=== PATIENT | female | born 1985 | race Caucasian/White ===

== ENCOUNTER 2016-08-10 14:32 | Emergency (ER) | payer MEDICARE, OTHER ==
[~2016-08-10] VITALS: Ht 149.9 cm; Wt 75.0 kg
[~2016-08-10 14:32] MED LIST: IPRASOL INH; MONT10TA2 PO; PRED20 PO; Z.0.OXYGENDME NC
[2016-08-10 14:35] VITALS: BP 152/100; PULSE 92; RESP 14; TEMP 98.1; O2SAT 96
--- NOTE | 2016-08-10 15:59 | PD ---
HPI Chief Complaint: Coordinator Of Genetic Services Problem/Complaint Time Seen by Provider: 15:12 Travel History International Travel<30 days: No Contact w/Intl Traveler<30days: No Traveled to known affect area: No History of Present Illness HPI Patient is a 30-year-old female who presents to emergency room with complaints of vaginal pruritus as well as vaginal discharge. Patient reports that since March, she has been treated multiple times with Diflucan as well as over-the -counter Monistat for yeast infection. Patient reports that these medications are not helping her. Patient reports that she tried using Monistat today, reports that she still feels increased pruritus to her vaginal wall. Patient reports that she is sexually active, reports that she does use protection during intercourse, reports that she is not follow-up with dispute specialist for evaluation for possible STD. Patient denies any fevers or chills at this time. Patient denies abdominal pain. Patient denies nausea or vomiting. Patient does report dysuria with urinary urgency and frequency. PFSH Past Medical History Asthma: Yes Autoimmune Disease: No Blood Disorders: No Anxiety: Yes Depression: No Cancer: No Cardiovascular Problems: Yes Diabetes: No Diminished Hearing: No Endocrine: No Gastrointestinal Disorders: No Glaucoma: Yes (GLAUCOMA IMPLANT ON 07-12-05) Genitourinary: No Hypertension: Yes Immune Disorder: No Musculoskeletal: No Neurologic: Yes (LEGALLY BLIND OU) Psychiatric: Yes Reproductive: No Respiratory: Yes (PNA/ASTHMA) Immunizations Current: No Thyroid Disease: No Tetanus Vaccination: Unknown Influenza Vaccination: No ?: Not Menopausal: No : 3 Para: 2 Miscarriage: 1 Past Surgical History Abdominal Surgery: Yes (MIDLINE UMBILICAL HERNIA) AICD: No Eye Surgery: Yes (prosthetic eyes ) Joint Replacement: No Oral Surgery: Yes Pacemaker: No Tonsillectomy: Yes Other Surgery: Yes Social History Alcohol Use: Yes (on occasion) Tobacco Use: No (never) Substance Use: Yes (MARIJUANA on occasion) Allergies-Medications (Allergen,Severity, Reaction): Coded Allergies: Macrobid (Verified Adverse Reaction, Severe, nausea and diarrhea, 07/17/16 ) Erythromycin (Verified Adverse Reaction, Mild, CONVULSIONS, 07/17/16) Uncoded Allergies: PROPELLANT BASED INHALERS (Allergy, Intermediate, 09/09/15) Reported Meds & Prescriptions Reported Meds & Active Scripts Active Prednisone 20 Mg Tab 20 Mg PO DAILY Duoneb (Ipratropium-Albuterol Neb) 0.5-2.5 Mg/3 Ml Neb 1 Nebule INH Q4HR NEB Oxygen (O2) (Z.0.oxygendme) Device 2 L NC CONTINUOUS Oxygen Concentrator Portable Gaseous 2 L/min via Nasal Cannula Continuous For 99 months Reported Singulair (Montelukast Sodium) 10 Mg Tab 10 Mg PO HS Review of Systems General / Constitutional: No: Fever Eyes: No: Visual changes HENT: No: Headaches Cardiovascular: No: Chest Pain or Discomfort Respiratory: No: Shortness of Breath Gastrointestinal: No: Abdominal Pain Genitourinary: Positive: Urgency, Frequency, Discharge, No: Dysuria Musculoskeletal: No: Pain Skin: No Rash Neurologic: No: Weakness Psychiatric: No: Depression Endocrine: No: Polydipsia Hematologic/Lymphatic: No: Easy Bruising Physical Exam Narrative GENERAL: No acute distress, nontoxic SKIN: Warm and dry. HEAD: Atraumatic. Normocephalic. . ENT: No nasal bleeding or discharge. Mucous membranes pink and moist. NECK: Trachea midline. No JVD. CARDIOVASCULAR: Regular rate and rhythm. No murmur appreciated. RESPIRATORY: No accessory muscle use. Clear to auscultation. Breath sounds equal bilaterally. GASTROINTESTINAL: Abdomen soft, non-tender, nondistended. Hepatic and splenic margins not palpable. : Pelvic exam performed with RN at bedside, patient with strawberry cervix, patient with irritated vaginal mucosal jane, patient with no obvious discharge on evaluation MUSCULOSKELETAL: No obvious deformities. No clubbing. No cyanosis. No edema. NEUROLOGICAL: Awake and alert. Data Data Last Documented VS Vital Signs Date Time Temp Pulse Resp B/P Pulse Ox O2 Delivery O2 Flow Rate FiO2 08/10/16 14:35 98.1 92 14 152/100 96 Room Air Orders Wet Prep Profile (08/10/16 15:25) Urinalysis - C+S If Indicated (08/10/16 15:25) Ed Urine Pregnancytest Poc (08/10/16 15:25) Gc And Chlamydia Pcr (08/10/16 16:34) Metronidazole (Flagyl) (08/10/16 17:15) Labs Laboratory Tests Test 08/10/16 16:00 Urine Color YELLOW Urine Turbidity HAZY Urine pH 5.5 Urine Specific Eldridge 1.031 Urine Protein TRACE mg/dL Urine Glucose (UA) NEG mg/dL Urine Ketones NEG mg/dL Urine Occult Blood MOD Urine Nitrite NEG Urine Bilirubin NEG Urine Urobilinogen LESS THAN 2.0 MG/DL Urine Leukocyte Esterase LARGE Urine RBC LESS THAN 1 /hpf Urine WBC LESS THAN 1 /hpf Microscopic Urinalysis Comment CULT NOT INDICATED Clue Cells (Wet Prep) NONE SEEN Vaginal Trichomonas (Wet Prep) PRESENT Vaginal Yeast (Wet Prep) NONE SEEN MDM Medical Decision Making Medical Screen Exam Complete: Yes Emergency Medical Condition: Yes Interpretation(s) Vital Signs Date Time Temp Pulse Resp B/P Pulse Ox O2 Delivery O2 Flow Rate FiO2 08/10/16 14:35 98.1 92 14 152/100 96 Room Air Differential Diagnosis vaginitis, cervicitis, uti, yeast infection Narrative Course Patient is a 30-year-old female who presents to emergency room with complaints of irregular vaginal discharge and vaginal pruritus since March. Patient reports that she has been on multiple courses of yeast infections over-the- counter as well as Diflucan - reports no relief of symptoms. Discussed with patient need for pelvic exam, will check for G/C and BV and trich patient positive for trich, will treat Patient understands that all sexual partners will need to be notified and treated Patient will follow up with cultures from today Diagnosis Primary Impression: Infection due to trichomonas vaginalis Patient Instructions: General Instructions Additional Instructions: All sexual partners will need to be notified of positive trichomonas cultures and will need to be treated Please return to ER as needed Please follow up with CULTURES from today Disposition: 01 DISCHARGE HOME Condition: Denita Dodge DO Aug 10, 2016 15:59
[2016-08-10 16:22] LABS: BLOOD, URINE MOD (NEG); GLUCOSE,URINE NEG (NEG); KETONE, URINE NEG (NEG); NITRITE,URINE NEG (NEG); PH, URINE 5.5 (5.0-8.5); URINE COLOR YELLOW (YELLW/STRAW)
[2016-08-10 16:32] LABS: COMMENT (UR) CULT NOT INDICATED; CULTURE IF INDICATED CULT NOT INDICATED
[2016-08-10] MEDS ORDERED: metroNIDAZOLE 500 MG TAB PO ONE (17:15)
[2016-08-10 17:49] VITALS: BP 145/89; PULSE 89; RESP 14; TEMP 98.1; O2SAT 96
[2016-08-10 19:16] LABS: CHLAMYDIA PCR NOT DETECTED (NOT DETECT); NEISSERIA PCR NOT DETECTED (NOT DETECT)
== END 2016-08-10 18:22 | disposition home or self-care (01) ==
LOC: NEPC 14:32
DX: A59.01 Trichomonal vulvovaginitis (principal); R30.0 Dysuria; R39.15 Urgency of urination; R35.0 Frequency of micturition; I10 Essential (primary) hypertension; H54.8 Legal blindness, as defined in USA; Z87.09 Personal history of other diseases of the respiratory system; Z86.59 Personal history of other mental and behavioral disorders; Z86.79 Personal history of other diseases of the circulatory system
CPT/HCPCS: 81001; 84703; 87210; 87491; 87591; 99283

== ENCOUNTER 2016-08-16 21:22 | Emergency (ER) | payer MEDICARE, OTHER ==
[~2016-08-16] VITALS: Ht 149.9 cm; Wt 76.0 kg
[2016-08-16 21:25] VITALS: BP 155/102; PULSE 118; RESP 18; TEMP 98.2; O2SAT 99
--- NOTE | 2016-08-16 21:39 | PD ---
HPI Chief Complaint: Respiratory Distress Time Seen by Provider: 21:38 Travel History International Travel<30 days: No Contact w/Intl Traveler<30days: No Traveled to known affect area: No History of Present Illness HPI 30-year-old female with long-standing history of asthma with frequent recurrent flares, presents the emergency department feeling very tight and short of breath and wheezing. Patient has a rope rider recently put her on Asmanex inhaler which the patient states is not helping her much. Patient was last seen here for asthma symptoms mid June. Patient states she was on prednisone orally up until about a week ago and has felt worse since. Patient is a very frequent flier to the emergency department for minor complaints. She has a history of allergies to erythromycin, Macrobid, and propelledinhalers. PFSH Past Medical History Asthma: Yes Autoimmune Disease: No Blood Disorders: No Anxiety: Yes Depression: No Cancer: No Cardiovascular Problems: Yes Diabetes: No Diminished Hearing: No Endocrine: No Gastrointestinal Disorders: No Glaucoma: Yes (GLAUCOMA IMPLANT ON 07-12-05) Genitourinary: No Hypertension: Yes Immune Disorder: No Musculoskeletal: No Neurologic: Yes (LEGALLY BLIND OU) Psychiatric: Yes Reproductive: No Respiratory: Yes (ASTHMA) Immunizations Current: No Thyroid Disease: No Menopausal: No : 3 Para: 2 Miscarriage: 1 Past Surgical History Abdominal Surgery: Yes (MIDLINE UMBILICAL HERNIA) AICD: No Eye Surgery: Yes (prosthetic eyes ) Joint Replacement: No Oral Surgery: Yes Pacemaker: No Tonsillectomy: Yes Other Surgery: Yes Social History Alcohol Use: Yes (on occasion) Tobacco Use: No (never) Substance Use: Yes (MARIJUANA on occasion) Allergies-Medications (Allergen,Severity, Reaction): Coded Allergies: Macrobid (Verified Adverse Reaction, Severe, nausea and diarrhea, 08/16/16) Erythromycin (Verified Adverse Reaction, Mild, CONVULSIONS, 08/16/16) Uncoded Allergies: PROPELLANT BASED INHALERS (Allergy, Intermediate, 09/09/15) Reported Meds & Prescriptions Reported Meds & Active Scripts Active Duoneb (Ipratropium-Albuterol Neb) 0.5-2.5 Mg/3 Ml Neb 1 Nebule INH Q4HR NEB Oxygen (O2) (Z.0.oxygendme) Device 2 L NC CONTINUOUS Oxygen Concentrator Portable Gaseous 2 L/min via Nasal Cannula Continuous For 99 months Reported Singulair (Montelukast Sodium) 10 Mg Tab 10 Mg PO HS Review of Systems Except as stated in HPI: all other systems reviewed are Neg General / Constitutional: No: Fever, Chills Eyes: No: Visual changes HENT: No: Headaches Cardiovascular: No: Chest Pain or Discomfort Respiratory: Positive: Shortness of Breath, Wheezing Gastrointestinal: No: Abdominal Pain Genitourinary: No: Dysuria Musculoskeletal: No: Pain Skin: No Rash Neurologic: No: Weakness Psychiatric: No: Depression Endocrine: No: Polydipsia Hematologic/Lymphatic: No: Easy Bruising Physical Exam Narrative GENERAL: Patient appears no acute distress. Patient is noted be legally blind. She is sitting quietly taking very shallow breaths. Patient is able speak in short sentences. Patient does not show accessory muscle use or retractions. SKIN: Warm and dry. Normal color. Normal turgor. No cyanosis. HEAD: Atraumatic. Normocephalic. EYES: Pupils equal and round. No scleral icterus. No injection or drainage. ENT: No nasal bleeding or discharge. Mucous membranes pink and moist. Pharynx is normal. NECK: Trachea midline. No JVD. CARDIOVASCULAR: Mildly tachycardic normal rhythm RESPIRATORY: No accessory muscle use. Clear to auscultation. Decreased breath sounds throughout. Breath sounds equal bilaterally. MUSCULOSKELETAL: Extremities without clubbing, cyanosis, or edema. No obvious deformities. NEUROLOGICAL: Awake and alert. No obvious cranial nerve deficits. Motor grossly within normal limits. Five out of 5 muscle strength in the arms and legs. Normal speech. PSYCHIATRIC: Appropriate mood and affect; insight and judgment normal. Data Data Last Documented VS Vital Signs Date Time Temp Pulse Resp B/P Pulse Ox O2 Delivery O2 Flow Rate FiO2 08/16/16 21:40 98.9 107 18 141/108 96 Nasal Cannula 2 Orders Complete Blood Count With Diff (08/16/16 21:45) Comprehensive Metabolic Panel (08/16/16 21:45) Chest, Single Ap (08/16/16 21:45) Ecg Monitoring (08/16/16 21:45) Iv Access Insert/Monitor (08/16/16 21:45) Oximetry (08/16/16 21:45) Oxygen Administration (08/16/16 21:45) Methylprednisolone So Succ Inj (Solumedr (08/16/16 21:45) Albuterol-Ipratropium Neb (Duoneb Neb) (08/16/16 21:45) Sodium Chloride 0.9% Flush (Ns Flush) (08/16/16 21:45) Blood Gas Venous (Vbg) (08/16/16 21:45) [facility] Medical Decision Making Medical Screen Exam Complete: Yes Emergency Medical Condition: Yes Differential Diagnosis Asthma exacerbation. Shortness of breath. Question psychiatric component. Narrative Course Patient appears medically stable at time of exam. EKG is performed showing IV access is obtained and labs are ordered including CBC, CMP, and venous blood gas. Patient is given 125 mg Solu-Medrol IV. Patient is ordered DuoNeb 3. Chest x-ray is ordered. EKG shows sinus tachycardia without significant acute findings. This is reviewed with Dr. Pereira. Venous blood gases within normal limits. PH is 7.449. PCO2 of 35.5. PO2 43.1. HCO3 is 24.2. Chest x-ray is unremarkable. Patient is improved after DuoNeb 3 and Solu-Medrol 125 mg IV. Patient is felt stable to go home based on her lab studies. Patient discharged home on prednisone 20 mg daily for the next 5 days. Patient is to call her rope rider for further evaluation and treatment as needed. Patient may return to emergency department worsening symptoms as necessary. Diagnosis Primary Impression: Asthma exacerbation Referrals: Dry Chain Puller Patient Instructions: General Instructions Additional Instructions: Patient is felt stable to go home based on her lab studies. Patient discharged home on prednisone 20 mg daily for the next 5 days. Patient is to call her rope rider for further evaluation and treatment as needed. Patient may return to emergency department worsening symptoms as necessary. Med/Other Pt SpecificInfo: Prescription(s) given, No Change to Meds Disposition: 01 DISCHARGE HOME Condition: Stable Juan Carlos Gonzáles Aug 16, 2016 21:39
[2016-08-16 21:40] VITALS: BP 141/108; PULSE 107; RESP 18; TEMP 98.9; O2SAT 92; O2SAT 96
[2016-08-16] MEDS ORDERED: SODIUM CHLORIDE 0.9% FLUSH 5 ML FLUSH IVF PRN (21:45)
[2016-08-16] MEDS ORDERED: methylPREDNISolone SOD SUCC 125 MG/2 ML VIAL IVP ONE (21:45)
--- NOTE | 2016-08-16 22:07 | PD ---
Physical Exam Date Seen by Provider: Aug 16, 2016 Narrative Patient presents with shortness of breath. Data Data Last Documented VS Vital Signs Date Time Temp Pulse Resp B/P Pulse Ox O2 Delivery O2 Flow Rate FiO2 08/16/16 21:40 98.9 107 18 141/108 96 Nasal Cannula 2 Orders Complete Blood Count With Diff (08/16/16 21:45) Comprehensive Metabolic Panel (08/16/16 21:45) Chest, Single Ap (08/16/16 21:45) Ecg Monitoring (08/16/16 21:45) Iv Access Insert/Monitor (08/16/16 21:45) Oximetry (08/16/16 21:45) Oxygen Administration (08/16/16 21:45) Methylprednisolone So Succ Inj (Solumedr (08/16/16 21:45) Albuterol-Ipratropium Neb (Duoneb Neb) (08/16/16 21:45) Sodium Chloride 0.9% Flush (Ns Flush) (08/16/16 21:45) Blood Gas Venous (Vbg) (08/16/16 21:45) Lorazepam Inj (Ativan Inj) (08/16/16 23:00) Labs Laboratory Tests Test 08/16/16 08/16/16 21:55 22:00 Blood Gas Puncture Site Blood Gas Patient Temperature 98.6 Venous Blood pH 7.45 Venous Blood Partial Pressure 36 mmHg CO2 Venous Blood Partial Pressure 43 mmHg O2 Venous Blood HCO3 24 mmol/L Venous Blood Oxygen Saturation 78 % Venous Blood Oxygen Content 18.8 Vol % Venous Blood Base Excess 0.6 mmol/L Oxygen Delivery Device ROOM AIR Blood Gas Inspired Oxygen 21 % White Blood Count 14.7 TH/MM3 Red Blood Count 5.28 MIL/MM3 Hemoglobin 15.7 GM/DL Hematocrit 45.7 % Mean Corpuscular Volume 86.4 FL Mean Corpuscular Hemoglobin 29.7 PG Mean Corpuscular Hemoglobin 34.4 % Concent Red Cell Distribution Width 13.0 % Platelet Count 298 TH/MM3 Mean Platelet Volume 8.6 FL Neutrophils (%) (Auto) 67.2 % Lymphocytes (%) (Auto) 25.7 % Monocytes (%) (Auto) 6.0 % Eosinophils (%) (Auto) 0.6 % Basophils (%) (Auto) 0.5 % Neutrophils # (Auto) 9.9 TH/MM3 Lymphocytes # (Auto) 3.8 TH/MM3 Monocytes # (Auto) 0.9 TH/MM3 Eosinophils # (Auto) 0.1 TH/MM3 Basophils # (Auto) 0.1 TH/MM3 CBC Comment DIFF FINAL Differential Comment Sodium Level 140 MEQ/L Potassium Level 3.5 MEQ/L Chloride Level 105 MEQ/L Carbon Dioxide Level 25.3 MEQ/L Anion Gap 10 MEQ/L Blood Urea Nitrogen 11 MG/DL Creatinine 0.90 MG/DL Estimat Glomerular Filtration 73 ML/MIN Rate Random Glucose 96 MG/DL Calcium Level 9.2 MG/DL Total Bilirubin 0.4 MG/DL Aspartate Amino Transf 12 U/L (AST/SGOT) Alanine Aminotransferase 25 U/L (ALT/SGPT) Alkaline Phosphatase 107 U/L Total Protein 7.3 GM/DL Albumin 3.9 GM/DL MDM Supervised Visit with LILLIE: Yes Narrative Course I, Dr. Pereira, have reviewed the advance practice practitioner's documentation and am in agreement, met with the patient face to face, made the diagnosis, and the medical decision making was done by me. *My assessment and Findings: Breath sounds are clear with full air movement throughout. She is not tachypneic. Her O2 sats are 99% on room air. Chest x-ray is negative to the radiologist's interpretation. Chest x-ray was independently viewed by me. CBC has a white count 14.7. She has been on steroids recently. Her H&H is 15.7 and 45.7. Venous blood gas has a PCO2 of 36. Chemistries are unremarkable. This patient is stable for discharge. Diagnosis Primary Impression: Dyspnea Qualified Code: R06.00 - Dyspnea, unspecified type Scripts Prednisone 20 Mg Tab20 Mg PO DAILY #5 TAB Ref 0 Prov:Vero Pereira MD 08/16/16 Disposition: DISCHARGE HOME Condition: Stable Vero Pereira MD Aug 16, 2016 22:07
[2016-08-16] MEDS: RESP: ALBUTEROL 2.5 MG/IPRATROPIUM 0.5 MG NEB (SCH) INH ×2 (22:13→22:14)
[2016-08-16] MEDS ORDERED: PRED20 PO (22:26)
[2016-08-16 22:32] LABS: AUTOMATED NEUTROPHIL # 9.9 TH/MM3 (1.8-7.7); BASOPHIL # 0.1 TH/MM3 (0-0.2); BASOPHIL % 0.5 % (0.0-2.0); EOSINOPHIL # 0.1 TH/MM3 (0-0.4); EOSINOPHIL % 0.6 % (0.0-4.0); HEMATOCRIT 45.7 % (35.0-46.0); HEMO FLAGS DIFF FINAL; LYMPH % 25.7 % (9.0-44.0); LYMPHOCYTE # 3.8 TH/MM3 (1.0-4.8); MEAN CELL VOLUME 86.4 FL (80.0-100.0); MEAN CORPUSCULAR HEMOGLOBIN 29.7 PG (27.0-34.0); MEAN CORPUSCULAR HGB CONC 34.4 % (32.0-36.0); NEUT % 67.2 % (16.0-70.0); PLATELET COUNT 298 TH/MM3 (150-450); RED BLOOD COUNT 5.28 MIL/MM3 (4.00-5.30); WHITE BLOOD COUNT 14.7 TH/MM3 (4.0-11.0)
[2016-08-16 22:35] LABS: BLOOD GAS VENOUS BASE EXCESS 0.6 mmol/L (-2-2); BLOOD GAS VENOUS HCO3 24 mmol/L (22-26); BLOOD GAS VENOUS O2 CONTENT 18.8 Vol % (9.0-17.0); BLOOD GAS VENOUS O2 HGB SAT 78 % (70-76); BLOOD GAS VENOUS PCO2 36 mmHg (44-48); BLOOD GAS VENOUS PO2 43 mmHg (35-40); BLOOD GAS VENOUS pH 7.45 (7.360-7.400); CRITICAL VALUE NO; FIO2 21 %; OXYGEN DEVICE ROOM AIR; TEMP CORR TO 98.6
[2016-08-16 22:36] LABS: STAT NO
--- NOTE | 2016-08-16 22:45 | RADRPT ---
EXAM DATE/TIME: 08/16/2016 22:35 [facility] COMPARISON: CHEST SINGLE AP, June 10, 2016, 19:55. INDICATIONS : Shortness of breath and cough for the past week. MEDICAL HISTORY : Chronic obstructive pulmonary disease. Asthma SURGICAL HISTORY : None. ENCOUNTER: Initial ACUITY: 1 week PAIN SCORE: 0/10 LOCATION: Bilateral chest FINDINGS: A single view of the chest demonstrates the lungs to be symmetrically aerated without evidence of mas s, infiltrate or effusion. The cardiomediastinal contours are unremarkable. Osseous structures are intact. CONCLUSION: No acute disease. Jude Patten MD FACR on August 16, 2016 at 22:44 Board Certified Radiologist. This report was verified electronically.
[2016-08-16 22:54] LABS: ALT (GPT) 25 U/L (10-53); ANION GAP 10 MEQ/L (5-15); AST (GOT) 12 U/L (15-37); BICARBONATE 25.3 MEQ/L (21.0-32.0); BLOOD UREA NITROGEN 11 MG/DL (7-18); CHLORIDE 105 MEQ/L (98-107); GLOMERULAR FILTRATION RATE 73 ML/MIN (>89); POTASSIUM 3.5 MEQ/L (3.5-5.1); SODIUM (NA) 140 MEQ/L (136-145)
[2016-08-16 22:59] LABS: ALKALINE PHOSPHATASE 107 U/L (45-117); TOTAL BILIRUBIN ADULT 0.4 MG/DL (0.2-1.0)
[2016-08-16] MEDS ORDERED: LORazepam 2 MG/ML VIAL IV PUSH ONE (23:00)
--- NOTE | 2016-08-17 20:09 | EKG ---
Date Performed: 08/16/2016 Time Performed: 21:42:28 PTAGE: 30 years EKG: SINUS TACHYCARDIA ABNORMAL RHYTHM ECG PREVIOUS TRACING : 06/10/2016 19.57 Compared to the previous tracing, rate faster DOCTOR: Na Chavez Interpretating Date/Time 08/17/2016 20:08:11
== END 2016-08-17 00:26 | disposition home or self-care (01) ==
LOC: NEPC 21:22
DX: J45.901 Unspecified asthma with (acute) exacerbation (principal); I10 Essential (primary) hypertension; R00.0 Tachycardia, unspecified
CPT/HCPCS: 71010; 80053; 82805; 85025; 93005; 96374; 96375; 99285; J2060; J2930

== ENCOUNTER 2016-08-28 13:59 | Observation (INO) | payer MEDICARE, OTHER ==
[2016-08-28] VITALS (7 sets, daily range): BP systolic 126–138; BP diastolic 78–103; PULSE 56–102; RESP 16–21; TEMP 97.7–98.9; O2SAT 96–100
[~2016-08-28] VITALS: Ht 149.9 cm; Wt 74.0 kg
[2016-08-28] MEDS ORDERED: SODIUM CHLORIDE 0.9% FLUSH 5 ML FLUSH IVF PRN ×2 (14:15→17:30)
--- NOTE | 2016-08-28 14:37 | PD ---
HPI Chief Complaint: Chest Pain Time Seen by Provider: 14:14 Travel History International Travel<30 days: No Contact w/Intl Traveler<30days: No Traveled to known affect area: No History of Present Illness HPI 30-year-old female with history of legally blind patient with history of asthma , presents to the ER today because she started having left-sided substernal chest discomfort with shortness of breath and palpitations. She states this started all of a sudden. She denies any coughing, fevers, vomiting, nausea, or any other symptoms. Modifying Factors: None Associated Signs & Symptoms: Palpitations, chest discomfort, shortness of breath Risk Factors: Asthma history PFSH Past Medical History Asthma: Yes Autoimmune Disease: No Blood Disorders: No Anxiety: Yes Depression: No Cancer: No Cardiovascular Problems: Yes Diabetes: No Diminished Hearing: No Endocrine: No Gastrointestinal Disorders: No Glaucoma: Yes (GLAUCOMA IMPLANT ON 07-12-05) Genitourinary: No Hypertension: Yes Immune Disorder: No Musculoskeletal: No Neurologic: Yes (LEGALLY BLIND OU) Psychiatric: Yes Reproductive: No Respiratory: Yes (ASTHMA) Immunizations Current: No Thyroid Disease: No ?: Unknown Menopausal: No : 3 Para: 2 Miscarriage: 1 Past Surgical History Abdominal Surgery: Yes (MIDLINE UMBILICAL HERNIA) AICD: No Eye Surgery: Yes (prosthetic eyes ) Joint Replacement: No Oral Surgery: Yes Pacemaker: No Tonsillectomy: Yes Other Surgery: Yes Social History Alcohol Use: Yes (OCCASIONALLY) Tobacco Use: No Substance Use: Yes (MARIJUANA but not for a long time.) Allergies-Medications (Allergen,Severity, Reaction): Coded Allergies: Macrobid (Verified Adverse Reaction, Severe, nausea and diarrhea, 08/28/16) Erythromycin (Verified Adverse Reaction, Mild, CONVULSIONS, 08/28/16) Uncoded Allergies: PROPELLANT BASED INHALERS (Allergy, Intermediate, 09/09/15) Reported Meds & Prescriptions Reported Meds & Active Scripts Active Prednisone 20 Mg Tab 20 Mg PO DAILY Duoneb (Ipratropium-Albuterol Neb) 0.5-2.5 Mg/3 Ml Neb 1 Nebule INH Q4HR NEB Reported Singulair (Montelukast Sodium) 10 Mg Tab 10 Mg PO HS Review of Systems Except as stated in HPI: all other systems reviewed are Neg Physical Exam Narrative GENERAL: Well-nourished, well-developed patient in no acute distress. SKIN: Warm and dry. HEAD: Normocephalic. NECK: Supple, trachea midline. CARDIOVASCULAR: Regular rate and rhythm without murmurs, gallops, or rubs. Pulses are present and equal bilaterally. RESPIRATORY: Breath sounds equal bilaterally. No accessory muscle use. No wheezes, crackles or rhonchi. GASTROINTESTINAL: Abdomen soft, non-tender, nondistended. MUSCULOSKELETAL: No cyanosis, or edema. BACK: Nontender without obvious deformity. No CVA tenderness. Data Data Last Documented VS Vital Signs Date Time Temp Pulse Resp B/P Pulse Ox O2 Delivery O2 Flow Rate FiO2 08/28/16 15:37 95 16 137/85 96 Room Air 138/88 08/28/16 14:10 98.9 Orders Electrocardiogram (08/28/16 ) Ckmb (Isoenzyme) Profile (08/28/16 14:14) Complete Blood Count With Diff (08/28/16 14:14) Comprehensive Metabolic Panel (08/28/16 14:14) D-Dimer (08/28/16 14:14) Magnesium (Mg) (08/28/16 14:14) Prothrombin Time / Inr (Pt) (08/28/16 14:14) Act Partial Throm Time (Ptt) (08/28/16 14:14) Troponin I (08/28/16 14:14) Chest, Single Ap (08/28/16 14:14) Ecg Monitoring (08/28/16 14:14) Bilateral Bp Monitoring (08/28/16 14:14) Iv Access Insert/Monitor (08/28/16 14:14) Oximetry (08/28/16 14:14) Oxygen Administration (08/28/16 14:14) Sodium Chloride 0.9% Flush (Ns Flush) (08/28/16 14:15) Ed Urine Pregnancytest Poc (08/28/16 14:14) Consult Vascular Access Team (08/28/16 ) Vascular Poc Ultrasound (08/28/16 ) Ct Pulmonary Angiogram (08/28/16 16:45) Admit Order (Ed Use Only) (08/28/16 16:45) Labs Laboratory Tests Test 08/28/16 08/28/16 15:24 16:38 White Blood Count 18.9 TH/MM3 Red Blood Count 5.55 MIL/MM3 Hemoglobin 16.7 GM/DL Hematocrit 47.6 % Mean Corpuscular Volume 85.8 FL Mean Corpuscular Hemoglobin 30.1 PG Mean Corpuscular Hemoglobin 35.1 % Concent Red Cell Distribution Width 13.3 % Platelet Count 330 TH/MM3 Mean Platelet Volume 8.3 FL Neutrophils (%) (Auto) 68.6 % Lymphocytes (%) (Auto) 24.7 % Monocytes (%) (Auto) 5.8 % Eosinophils (%) (Auto) 0.6 % Basophils (%) (Auto) 0.3 % Neutrophils # (Auto) 13.0 TH/MM3 Lymphocytes # (Auto) 4.7 TH/MM3 Monocytes # (Auto) 1.1 TH/MM3 Eosinophils # (Auto) 0.1 TH/MM3 Basophils # (Auto) 0.0 TH/MM3 CBC Comment AUTO DIFF Differential Total Cells 100 Counted Neutrophils % (Manual) 74 % Lymphocytes % 22 % Monocytes % 4 % Neutrophils # (Manual) 14.0 TH/MM3 Differential Comment FINAL DIFF MANUAL Platelet Estimate NORMAL Platelet Morphology Comment NORMAL Red Cell Morphology Comment NORMAL Prothrombin Time 10.3 SEC Prothromb Time International 0.9 RATIO Ratio Activated Partial 24.5 SEC Thromboplast Time D-Dimer Quantitative (PE/DVT) 0.55 MG/L FEU Sodium Level 134 MEQ/L Potassium Level 4.1 MEQ/L Chloride Level 101 MEQ/L Carbon Dioxide Level 26.7 MEQ/L Anion Gap 6 MEQ/L Blood Urea Nitrogen 19 MG/DL Creatinine 1.01 MG/DL Estimat Glomerular Filtration 64 ML/MIN Rate Random Glucose 95 MG/DL Calcium Level 8.9 MG/DL Magnesium Level 2.7 MG/DL Total Bilirubin 0.7 MG/DL Aspartate Amino Transf 34 U/L (AST/SGOT) Alanine Aminotransferase 39 U/L (ALT/SGPT) Alkaline Phosphatase 110 U/L Total Creatine Kinase 98 U/L 54 U/L Troponin I LESS THAN 0.02 LESS THAN 0.02 NG/ML NG/ML Total Protein 7.2 GM/DL Albumin 3.6 GM/DL [facility] Medical Decision Making Medical Screen Exam Complete: Yes Emergency Medical Condition: Yes Medical Record Reviewed: Yes Interpretation(s) EKG shows sinus tachycardia at a rate of 100 bpm, no ST elevation or depression , and no arrhythmias. No significant T-wave inversions. Laboratory Tests Test 1/29/17 15:24 White Blood Count 18.9 TH/MM3 (4.0-11.0) Red Blood Count 5.55 MIL/MM3 (4.00-5.30) Hemoglobin 16.7 GM/DL (11.6-15.3) Hematocrit 47.6 % (35.0-46.0) Neutrophils # (Auto) 13.0 TH/MM3 (1.8-7.7) Monocytes # (Auto) 1.1 TH/MM3 (0-0.9) Neutrophils % (Manual) 74 % (16-70) Neutrophils # (Manual) 14.0 TH/MM3 (1.8-7.7) D-Dimer Quantitative (PE/DVT) 0.55 MG/L FEU (0.00-0.50) Sodium Level 134 MEQ/L (136-145) Blood Urea Nitrogen 19 MG/DL (7-18) Creatinine 1.01 MG/DL (0.50-1.00) Estimat Glomerular Filtration 64 ML/MIN (>89) Rate Magnesium Level 2.7 MG/DL (1.5-2.5) Troponin I LESS THAN 0.02 NG/ML (0.02-0.05) Last 24 hours Impressions Chest X-Ray 08/28/16 1414 Signed Impressions: Service Date/Time: Sunday, August 28, 2016 15:58 - CONCLUSION: The lungs are clear. Antony Johnson MD Differential Diagnosis Chest pains, shortness of breath, palpitationsdysrhythmias versus asthma exacerbation versus ACS versus pneumonia versus PE Narrative Course Chest x-rays unremarkable for any signs of acute pulmonary processes. Cardiac enzymes are negative. EKG did not show any signs of acute ST-T changes. At this point, my plan would be to admit the patient to chest pain center for further evaluation. Diagnosis Primary Impression: CHEST PAIN, UNSPECIFIED Admitting Information Admitting Physician Requests: Admit Hector Jay MD Aug 28, 2016 14:37
[2016-08-28 15:47] LABS: BASOPHIL % 0.3 % (0.0-2.0); EOSINOPHIL # 0.1 TH/MM3 (0-0.4); EOSINOPHIL % 0.6 % (0.0-4.0); HEMATOCRIT 47.6 % (35.0-46.0); LYMPH % 24.7 % (9.0-44.0); LYMPHOCYTE # 4.7 TH/MM3 (1.0-4.8); MEAN CELL VOLUME 85.8 FL (80.0-100.0); MEAN CORPUSCULAR HEMOGLOBIN 30.1 PG (27.0-34.0); MEAN CORPUSCULAR HGB CONC 35.1 % (32.0-36.0); MONO % 5.8 % (0.0-8.0); NEUT % 68.6 % (16.0-70.0); PLATELET COUNT 330 TH/MM3 (150-450); RED BLOOD COUNT 5.55 MIL/MM3 (4.00-5.30); RED CELL DISTRIBUTION WIDTH 13.3 % (11.6-17.2); WHITE BLOOD COUNT 18.9 TH/MM3 (4.0-11.0)
[2016-08-28 15:50] LABS: HEMO FLAGS AUTO DIFF
[2016-08-28 16:03] LABS: APTT (PATIENT) 24.5 SEC (24.3-30.1); INTERNATIONAL NORMALIZED RATIO 0.9 RATIO; PROTHROMBIN TIME - PATIENT 10.3 SEC (9.8-11.6)
[2016-08-28 16:11] LABS: ALKALINE PHOSPHATASE 110 U/L (45-117); ALT (GPT) 39 U/L (10-53); ANION GAP 6 MEQ/L (5-15); AST (GOT) 34 U/L (15-37); BICARBONATE 26.7 MEQ/L (21.0-32.0); BLOOD UREA NITROGEN 19 MG/DL (7-18); CHLORIDE 101 MEQ/L (98-107); GLOMERULAR FILTRATION RATE 64 ML/MIN (>89); MAGNESIUM 2.7 MG/DL (1.5-2.5); SODIUM (NA) 134 MEQ/L (136-145); TOTAL BILIRUBIN ADULT 0.7 MG/DL (0.2-1.0)
[2016-08-28 16:13] LABS: CREATINE KINASE 98 U/L (26-192); POTASSIUM 4.1 MEQ/L (3.5-5.1)
[2016-08-28 16:14] LABS: PLATELET ESTIMATE SMEAR NORMAL (NORMAL); PLATELET MORPHOLOGY NORMAL (NORMAL); POLYS (SEG NEUTROPHILS) 74 % (16-70); WBC DIFF SAMPLE 100
[2016-08-28 16:15] LABS: SCAN/DIFF FINAL DIFF MANUAL
--- NOTE | 2016-08-28 16:35 | RADRPT ---
EXAM DATE/TIME: 08/28/2016 15:58 [facility] COMPARISON: CT PULMONARY ANGIOGRAM, March 30, 2016, 18:29. CHEST SINGLE AP, August 16, 2016, 22:35. INDICATIONS : Chest Pain MEDICAL HISTORY : Chronic obstructive pulmonary disease. Asthma SURGICAL HISTORY : None. ENCOUNTER: Initial ACUITY: 1 day PAIN SCORE: 4/10 LOCATION: Bilateral chest FINDINGS: A single view of the chest demonstrates the lungs to be symmetrically aerated without evidence of mas s, infiltrate or effusion. The cardiomediastinal contours are unremarkable. Osseous structures are intact. CONCLUSION: The lungs are clear. Antony Johnson MD on August 28, 2016 at 16:30 Board Certified Radiologist. This report was verified electronically.
[2016-08-28] MEDS ORDERED: ONDANSETRON HCL 4 MG/2 ML VIAL IV PRN (17:30)
[2016-08-28] MEDS ORDERED: NITROGLYCERIN 0.4 MG SL 25 TABS/BTL SL PRN (17:30)
--- NOTE | 2016-08-28 17:57 | EKG ---
Date Performed: 08/28/2016 Time Performed: 14:10:48 PTAGE: 30 years EKG: SINUS TACHYCARDIA LEFT AXIS DEVIATION ABNORMAL ECG PREVIOUS TRACING : 08/16/2016 21.42 No significant change from previous tracing noted. DOCTOR: Pantera Marmolejo Interpretating Date/Time 08/28/2016 17:55:54
[2016-08-28 19:26] LABS: CREATINE KINASE 54 U/L (26-192)
[2016-08-28] MEDS ORDERED: RESP: ALBUTEROL 1.25 MG/3 ML NEB (PRN) NEB (20:15)
[2016-08-28] MEDS ORDERED: KETOROLAC TROMETHAMINE 30 MG/ML (IVP) VIAL IV PUSH ONE (20:15)
[2016-08-28] MEDS ORDERED: THEO400T2 PO (20:18)
[2016-08-28] MEDS ORDERED: IOHEXOL 350 MG/ML 10 ML VIAL (for RAD DIAG) IV ONE (20:55)
[2016-08-28] MEDS ORDERED: MONTELUKAST SODIUM 10 MG TAB PO SCH (21:00)
--- NOTE | 2016-08-28 21:09 | EKG ---
Date Performed: 08/28/2016 Time Performed: 18:32:03 PTAGE: 30 years EKG: Sinus rhythm POSSIBLE LEFT ATRIAL ENLARGEMENT BORDERLINE LEFT AXIS DEVIATION POOR PRECORDIAL R-WAVE PROGRESSION A BNORMAL ECG PREVIOUS TRACING : 08/28/2016 14.10 DOCTOR: Darwin De La Cruz Interpretating Date/Time 08/28/2016 21:09:02
--- NOTE | 2016-08-28 21:21 | RADRPT ---
EXAM DATE/TIME: 08/28/2016 20:46 [facility] COMPARISON: CT PULMONARY ANGIOGRAM, March 30, 2016, 18:29. INDICATIONS : Left sided chest pain with shortness of breath. IV CONTRAST: 42 cc Omnipaque 350 (iohexol) IV RADIATION DOSE: 15.58 CTDIvol (mGy) MEDICAL HISTORY : Hypertension. Cardiovascular disease SURGICAL HISTORY : None. ENCOUNTER: Initial ACUITY: 1 day PAIN SCALE: 3/10 LOCATION: Left chest TECHNIQUE: Volumetric scanning of the chest was performed using a pulmonary embolism protocol MIP images were re constructed. Using automated exposure control and adjustment of the mA and/or kV according to patien t size, radiation dose was kept as low as reasonably achievable to obtain optimal diagnostic quality images. FINDINGS: PULMONARY ARTERIES: No filling defects are seen in the pulmonary arteries through the segmental level. LUNGS: There is no consolidation or pneumothorax . No concerning pulmonary nodule is visualized. PLEURAE: There is no pleural thickening or pleural effusion. MEDIASTINUM: There is good visualization of the great vessels of the middle mediastinum. No evidence of mediastin al or hilar adenopathy/mass. CONCLUSION: The study is negative for pulmonary embolism. Antony Johnson MD on August 28, 2016 at 21:18 Board Certified Radiologist. This report was verified electronically.
[2016-08-28] MEDS: RESP: ALBUTEROL 2.5 MG/IPRATROPIUM 0.5 MG NEB (SCH) NEB (21:31)
[2016-08-28] MEDS: SODIUM CHLOR 0.9% 1000 ML INJ 1,000 ML IV SCH (21:38)
[2016-08-28] MEDS: PANTOPRAZOLE SOD 40 MG DELAYED RELEASE TAB PO SCH (21:39)
[2016-08-28] MEDS: SODIUM CHLORIDE 0.9% FLUSH 5 ML FLUSH IVF SCH (21:39)
[2016-08-28 22:50] LABS: BETA HCG QUANT LESS THAN 1 MIU/ML (0-5)
[2016-08-28 22:53] LABS: CREATINE KINASE 35 U/L (26-192)
[2016-08-29] VITALS: PULSE 79
[2016-08-29] MEDS: ACETAMINOPHEN 500 MG CPLT PO PRN ×2 (01:42→06:15)
[2016-08-29 04:00] VITALS: BP 121/70; PULSE 87; RESP 22; TEMP 98.9; O2SAT 99
[2016-08-29] MEDS: RESP: ALBUTEROL 2.5 MG/IPRATROPIUM 0.5 MG NEB (SCH) NEB ×2 (04:30→07:23)
[2016-08-29] MEDS: SODIUM CHLOR 0.9% 1000 ML INJ 1,000 ML IV SCH (07:00)
[2016-08-29 07:25] VITALS: O2SAT 99
[2016-08-29] MEDS ORDERED: ACETAMINOPHEN/HYDROcodone 325 MG/5 MG TAB PO ONE (08:30)
[2016-08-29] MEDS ORDERED: ULTR50TA5 PO (08:33)
--- NOTE | 2016-08-29 08:33 | HHI.DCPOC ---
Discharge Care Plan Diagnosis: (1) Chest pain, atypical (2) Asthma Goals to Promote Your Health * To prevent worsening of your condition and complications * To maintain your health at the optimal level Directions to Meet Your Goals Take your medications as prescribed Follow your dietary instruction Follow activity as directed Keep your appointments as scheduled Take your immunizations and boosters as scheduled If your symptoms worsen call your PCP, if no PCP go to Urgent Care Center or Emergency Room Smoking is Dangerous to Your Health. Avoid second hand smoke Call the 24-hour hour crisis hotline for domestic abuse at Kenny Gomez Aug 29, 2016 08:33
[2016-08-29 08:35] VITALS: BP 128/77; PULSE 83; RESP 20; TEMP 97.9; O2SAT 95
[2016-08-29] MEDS: SODIUM CHLORIDE 0.9% FLUSH 5 ML FLUSH IVF SCH (08:35)
--- NOTE | 2016-08-29 08:40 | MH ---
cc: NIRAJ YOUSIF MD DATE OF ADMISSION 08/28/2016 DATE OF 1985 CHIEF COMPLAINT Chest pain. HISTORY OF PRESENT ILLNESS This is a 30-year-old female presents to emergency room with an onset of chest pain two days ago. She describes the location as substernal, as a constant dullness with intermittent sharp pain that radiates to her back. Breathing makes the pain worse. She has no other associated symptoms such as nausea, vomiting or shortness of breath. No known precipitating factors or relieving factors. The patient does endorse she recently was discharged from [facility]. She was there for four days with an exacerbation of asthma, and her last dose of prednisone was on . She does not believe this pain that she is having is related to asthma and states actually this is "not like any asthma pains I have had in the past". PAST MEDICAL HISTORY 1. Asthma. 2. Glaucoma implant in 2004. She is legally blind. 3. Anxiety. PAST SURGICAL HISTORY 1. Umbilical hernia. 2. 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 FAMILY HISTORY Positive for early onset cardiovascular disease, states mother started having cardiovascular problems in her mid 30s and at age 48 from a massive heart attack. Not sure if she had cardiac stents, but knows mom did have heart problems. No heart problems with his father and/or siblings. Did have a cousin age 31 have a heart attack. SOCIAL HISTORY She is disabled. She lives with her sister and states she tries to be active as much as she is able to. She is a lifelong smoker, drinks two alcoholic beverages monthly. Denies any illegal drug use. No known hypertension, diabetes or hyperlipidemia. PAST CARDIAC TESTING She has not had any formal cardiac testing. ALLERGIES SHE HAS ALLERGIES THAT INCLUDE MICROBID, ERYTHROMYCIN AND PROPELLANT BASED INHALERS. MEDICATIONS Current medications include: 1. DuoNebs q. 4 hours p.r.n. as needed for shortness of breath. 2. Singulair 10 mg q.h.s. 3. Theophylline 400 mg daily. 4. And she also has O2 at 2 liters as needed for shortness of breath. REVIEW OF SYSTEMS GENERAL: No fevers, chills. She has had recent illness and was hospitalized at [facility] with an exacerbation of asthma, was released on and has been feeling well since that time other than the past two days when she developed chest discomfort. HEENT: She did have a slight headache yesterday. This is since gone. She is legally blind although she does state that if she needs to walk on a treadmill she would safely be able to do so. No nasal congestion or drainage. CARDIOVASCULAR: As stated above. No palpitations or intermittent leg pain or dizziness. RESPIRATORY: She did become short of breath while cleaning the floors this afternoon. At that time she was quite concerned and she has a pulse oximetry at home and her pulse oximetry was 98% but her heart rate was 166 and this alarmed her. She told her sister who is a nurse and she was encouraged to come to the emergency room for further evaluation. No hemoptysis. No cough and no wheeze. In fact she states anytime she has an asthma exacerbation she does not wheeze. ABDOMEN: No bowel changes, diarrhea, constipation. Reports a good appetite, in fact she states she is quite hungry. She has not had any change in appetite. No nausea or vomiting. GENITOURINARY: No dysuria, urgency, frequency or hematuria. RABBIT DRESSER: The patient was recently treated for trichomonas with Flagyl and states this problem has resolved. EXTREMITIES: No lower leg pain. Does report occasional bilateral ankle swelling. NEUROLOGICAL: No difficulty with balance, motor or sensory deficits, changes in memory, dizziness or loss of consciousness. PHYSICAL EXAMINATION VITAL SIGNS: Temperature 98.9, pulse 102, respiratory rate 17, blood pressure 126/90. She is 96% on room air. GENERAL: She is alert, well-nourished, well-developed, in no acute distress. Mildly obese, pleasant female. HEENT: Head is normocephalic and atraumatic. Ear, nose, and throat mucous membranes are pink and moist. NECK: Supple. Trachea is midline. CARDIOVASCULAR: Regular rate and rhythm without murmurs, rubs, or gallops. S1-S2. No S3. No S4. LUNGS: Clear lungs throughout bilaterally with no crackles, wheeze or rhonchi. She is nonlabored. Speaking in full sentences and has a symmetrical chest rise. ABDOMEN: Soft and nontender. Nondistended. No masses. Positive bowel tones. EXTREMITIES: Pulses +2 x 4. There is no dependent edema. MUSCULOSKELETAL: Normal tone times four. She is nontender in her chest wall. There is no obvious deformity. NEUROLOGICAL: Cranial nerves II through XII grossly intact. Motor strength 5/5. PSYCHIATRIC: Alert and oriented times three. Has a pleasant affect. Appropriate to mood, insight and judgment. SKIN: Warm and dry with a normal turgor and texture. LABORATORY DATA CBC, has a WBC of 18.9, hemoglobin is 16.7, hematocrit of 47.6, otherwise unremarkable. Chemistry sodium of 134, otherwise unremarkable. Two sets of cardiac enzymes are negative. Coagulation is negative. D-dimer was elevated at 0.55. IMAGING A chest x-ray completed by radiologist states the lungs are clear. A CT angiogram is pending, awaiting venous access. Two EKGs show normal sinus rhythm with a left axis. No ST or T segment changes. ASSESSMENT/PLAN 1. Chest pain. The patient has been admitted to the chest pain center. She will be monitored overnight, undergo three sets of EKGs and cardiac enzymes. She will be seen and evaluated by Dr. Niraj Yousif in the morning. Discussed with the patient and also her sister via the phone of plan of care. They are both concerned with their family history of her mother having early onset cardiovascular disease and also a cousin, that she would be agreeable to treadmill stress test in the a.m. Discussed with both of them that this decision will be made by machine operator transplanter after evaluation. 2. Asthma. Reordered her Singulair and provided her with DuoNebs q.6 h and albuterol q.3 h p.r.n. 3. Musculoskeletal pain. Toradol 30 mg IV x1 dose. Dictated by: HANNAH Arguello MD SEAN Fields/BONY /8:45 PM /8:39 AM
[2016-08-29] MEDS: PANTOPRAZOLE SOD 40 MG DELAYED RELEASE TAB PO SCH (08:45)
[2016-08-29] MEDS ORDERED: ASPIRIN 325 MG TAB PO SCH (09:00)
--- NOTE | 2016-08-29 09:06 | MH ---
cc: NIRAJ YOUSIF MD DATE OF ADMISSION: 08/28/2016 DATE OF : 1985 CHIEF COMPLAINT Chest pain. HISTORY OF PRESENT ILLNESS This is a 30-year-old female who presented to the ED complaining of four days of constant chest comfort. She states it began while she was scrubbing her floors. She has asthma. She was using an unscented hand bobbin cleaner. She became short of breath and her heart rate jumped. She states she has a pulse oximeter and she checked her heart rate and it was 166. She called her sister who advised her to go to the ER. The discomfort is still there. She states she was also admitted to [facility] [place] last Monday for exacerbation of her asthma by her special librarian. She was hospitalized for four days. When she got home is when she had the discomfort. She has not been coughing. She denies any wheezing. The discomfort is still in the center of her chest. No diaphoresis or nausea. PAST MEDICAL HISTORY Asthma, O2 dependent. Denies hypertension, hyperlipidemia, diabetes and CAD. FAMILY HISTORY No family history of CAD. SOCIAL HISTORY She is not a smoker. Denies alcohol or illicit drugs. PAST SURGICAL HISTORY Noncontributory. ALLERGIES 1. ERYTHROMYCIN. 2. MACROBID. 3. PROPELLANT BASED INHALERS. MEDICATIONS Current medications include Singulair and nebulizers. She has auction at home as well. REVIEW OF SYSTEMS GENERAL: Denies fevers or chills. She was recently admitted last week for exacerbation of her asthma. HEENT: Denies headache, earache, sore throat, difficulty swallowing. CARDIOVASCULAR: Describes the discomfort as mentioned above. Denies diaphoresis. She had sensation of her heart beating rapidly. No syncope. RESPIRATORY: She gets short of breath chronically. She has not noticed any wheezing but felt as though she had a little bit of tightness. Denies inspirational chest discomfort. Denies coughing or hemoptysis. GASTROINTESTINAL: Denies nausea, vomiting, diarrhea, abdominal pain or blood in the stool. MUSCULOSKELETAL: Denies joint pain or edema. Denies calf pain or edema. NEUROVASCULAR: Denies headache or dizziness. ENDOCRINE: Denies polyuria or polydipsia. HEMATOLOGIC: Denies easy bruising. SKIN: Denies rash or itching. PHYSICAL EXAMINATION VITAL SIGNS: The vital signs in the emergency department initially included a blood pressure of 126/90, heart rate 102, respirations 17, pulse oximetry 96% on room air, and she was afebrile. The most recent vital signs include a blood pressure of 121/70, heart rate 87, respirations 22, pulse oximetry 98% on room air and she is afebrile. GENERAL: The patient is seen in the examination room in no apparent distress. She is pleasant. She speaks in clear and complete sentences. HEENT: Atraumatic, normocephalic. NECK: Supple without lymphadenopathy. Trachea is midline. No JVD or carotid bruits. CARDIOVASCULAR: Regular rate and rhythm without murmur, gallop or rub. PULMONARY: Lungs are clear to auscultation bilaterally. No wheezing, rales or rhonchi. No use of accessory muscles. ABDOMEN: Nontender. Bowel sounds are normal. The abdomen is soft. EXTREMITIES: The patient is moving upper and lower extremities freely. No joint tenderness or edema. No calf tenderness or edema. No Homans sign. Strong pulses in the upper and lower extremities. NEUROLOGIC: The patient is alert and oriented. Cranial nerves II through XII are grossly intact. She is legally blind and has prosthetic eyes. SKIN: No rashes. Turgor is normal. LABORATORY DATA CBC is unremarkable. Coagulation studies are unremarkable other than a D-dimer being mildly elevated at 0.55. Complete metabolic panel is essentially unremarkable. Serial cardiac enzymes are normal x3. Beta hCG is less than 1. IMAGING DATA A single-view chest x-ray read by the radiologist as lungs are clear. A CT pulmonary angiogram obtained through the ER and ready by the radiologist as study negative for pulmonary embolism. EKG DATA EKGs have sinus rhythm without significant ST segment depression or elevation. ASSESSMENT AND PLAN 1. Chest pain: The patient's discomfort is atypical. She had serial cardiac enzymes and EKGs for ruling out purposes. She has been seen by Dr. Niraj Yousif of cardiology in the chest pain center. She will be given analgesia and instructed to follow-up with her primary care physician as well as her special librarian. 2. Asthma: Continue follow-up with her special librarian and continue her current medication. 3. The patient is stable at this time. She agreeable to this plan. Dictated by: Kenny Gomez PA-C MD SEAN Fields/DANIELLE /8:30 AM /9:05 AM
--- NOTE | 2016-08-29 13:37 | EKG ---
Date Performed: 08/28/2016 Time Performed: 21:58:21 PTAGE: 30 years EKG: Sinus rhythm WITH SINUS ARRHYTHMIA POSSIBLE LEFT ATRIAL ENLARGEMENT MARKED LEFT AXIS DEVIATION ABNORMAL ECG PREVIOUS TRACING : 08/28/2016 18.32 Since previous tracing, no significant change noted DOCTOR: Denys Yousif Interpretating Date/Time 08/29/2016 13:35:57
== END 2016-08-29 10:36 | disposition home or self-care (01) ==
LOC: NEPA 13:59 → NEDA 16:48 → NEPGCP 19:18
PROVIDERS: ADMIT Family Medicine; ATTEND Family Medicine
DX: R07.89 Other chest pain (principal); J45.909 Unspecified asthma, uncomplicated; H54.8 Legal blindness, as defined in USA; R00.2 Palpitations; F41.9 Anxiety disorder, unspecified; I10 Essential (primary) hypertension; M79.1 Myalgia; Z99.81 Dependence on supplemental oxygen; Z82.49 Family history of ischemic heart disease and other diseases of the circulatory system
CPT/HCPCS: 71010; 71275; 80053; 82550; 83735; 84484; 84702; 84703; 85007; 85027; 85379; 85610; 85730; 93005; 94640; 94664; 99285; G0378; J1885; J7030; Q9967; 76937

== ENCOUNTER 2016-09-17 13:17 | Emergency (ER) | payer MEDICARE, OTHER ==
[~2016-09-17] VITALS: Ht 149.9 cm; Wt 72.5 kg
[~2016-09-17 13:17] MED LIST changes: -PRED20 PO; +THEO400T2 PO; +ULTR50TA5 PO; -Z.0.OXYGENDME NC
[2016-09-17 13:20] VITALS: BP 145/92; PULSE 102; RESP 16; TEMP 98.1; O2SAT 95
[2016-09-17] MEDS ORDERED: BROV15NE NEB (14:02)
[2016-09-17] MEDS ORDERED: BUDE.5I NEB (14:02)
[2016-09-17 14:08] VITALS: BP 130/82; PULSE 83; RESP 16; O2SAT 95
[2016-09-17] MEDS ORDERED: IBUP800T23 PO (14:15)
[2016-09-17] MEDS ORDERED: KETOROLAC TROMETHAMINE 60 MG/2 ML (IM) VIAL IM ONE (14:15)
--- NOTE | 2016-09-17 14:16 | PD ---
HPI Chief Complaint: Pain: Acute or Chronic Time Seen by Provider: 14:11 Travel History International Travel<30 days: No Contact w/Intl Traveler<30days: No Traveled to known affect area: No History of Present Illness HPI Patient's 30-year-old female presenting to emergency for evaluation of right ankle pain. Patient denies any injury or trauma, she states her friend stepped on her foot 2 days ago and since then has been hurting. She rates her pain a 6 out of 10 and describes it as sore. She further denies any numbness, tingling, weakness in that extremity. Patient is legally blind. She has been ambulating on the right foot without difficulty. PFSH Past Medical History Asthma: Yes Autoimmune Disease: No Blood Disorders: No Anxiety: Yes Depression: No Heart Rhythm Problems: No Cancer: No Cardiac Catheterization: No Cardiovascular Problems: Yes High Cholesterol: Yes Chest Pain: Yes Congestive Heart Failure: No COPD: No Diabetes: No Diminished Hearing: No Endocrine: No Gastrointestinal Disorders: No Glaucoma: Yes (GLAUCOMA IMPLANT ON 07-12-05) Genitourinary: No Hypertension: Yes Immune Disorder: No Musculoskeletal: No Neurologic: Yes (Blind) Psychiatric: No Reproductive: No Respiratory: Yes Immunizations Current: No Sleep Apnea: No Thyroid Disease: No Influenza Vaccination: No ?: Not LMP: LATE JULY 2016 Menopausal: No : 3 Para: 2 Miscarriage: 1 Past Surgical History Abdominal Surgery: Yes (MIDLINE UMBILICAL HERNIA) AICD: No Coronary Artery Bypass Graft: No Eye Surgery: Yes (prosthetic eyes ) Joint Replacement: No Oral Surgery: Yes Pacemaker: No Tonsillectomy: Yes Other Surgery: Yes Family History Family Myocardial Infarction: Yes Social History Alcohol Use: Yes (OCCASIONALLY) Tobacco Use: No Substance Use: Yes (MARIJUANA) Allergies-Medications (Allergen,Severity, Reaction): Coded Allergies: Macrobid (Verified Adverse Reaction, Severe, nausea and diarrhea, 09/17/16) Erythromycin (Verified Adverse Reaction, Mild, CONVULSIONS, 09/17/16) Uncoded Allergies: PROPELLANT BASED INHALERS (Allergy, Intermediate, 09/09/15) Reported Meds & Prescriptions Reported Meds & Active Scripts Active Duoneb (Ipratropium-Albuterol Neb) 0.5-2.5 Mg/3 Ml Neb 1 Nebule INH Q4HR NEB Reported Pulmicort Respules (Budesonide) 0.5 Mg/2 Ml Neb 0.5 Mg NEB Q12HR NEB Theophylline ER 24 HR (Theophylline) 400 Mg Tab 400 Mg PO DAILY Singulair (Montelukast Sodium) 10 Mg Tab 10 Mg PO HS Brovana Neb (Arformoterol Neb) 15 Mcg/2 Ml Vial 1 Nebule NEB BID Maintenance treatment of bronchoconstriction in COPD. Review of Systems Except as stated in HPI: all other systems reviewed are Neg Musculoskeletal: Positive: Myalgias, Arthralgias, Pain, No: Edema Skin: No Change in Pigmentation Physical Exam Narrative GENERAL: Well-nourished, well-developed patient. SKIN: Warm and dry. HEAD: Normocephalic. EYES: No scleral icterus. No injection or drainage. NECK: Supple, trachea midline. No JVD or lymphadenopathy. CARDIOVASCULAR: Regular rate and rhythm without murmurs, gallops, or rubs. RESPIRATORY: Breath sounds equal bilaterally. No accessory muscle use. GASTROINTESTINAL: Abdomen soft, non-tender, nondistended. MUSCULOSKELETAL: No cyanosis, or edema. No obvious deformities noted. Full range of motion in right ankle and foot. Positive pedal pulses, brisk less than 3 second capillary refill. Mildly tender to palpation on the lateral aspect of right ankle. BACK: Nontender without obvious deformity. No CVA tenderness. Data Data Last Documented VS Vital Signs Date Time Temp Pulse Resp B/P Pulse Ox O2 Delivery O2 Flow Rate FiO2 09/17/16 14:08 83 16 130/82 95 Room Air 09/17/16 13:20 98.1 [facility] Medical Decision Making Medical Screen Exam Complete: Yes Emergency Medical Condition: Yes Interpretation(s) Vital Signs Date Time Temp Pulse Resp B/P Pulse Ox O2 Delivery O2 Flow Rate FiO2 09/17/16 14:08 83 16 130/82 95 Room Air 09/17/16 13:20 98.1 102 16 145/92 95 Differential Diagnosis Sprain versus strain versus arthritis versus fracture versus dislocation versus other Narrative Course Patient is a 30-year-old female presenting to the emergency department for evaluation of right ankle pain that started 2 days ago when her foot was stepped on. No obvious deformities noted, no ecchymosis or edema noted. Patient has full range of motion with no motor deficits. Patient will be given anti-inflammatory medication. She is encouraged to rest, ice, elevate extremity. She is encouraged to continue to new range of motion exercises. Furthermore patient should follow-up with her primary care provider. She is encouraged to return to emergency department for any new or worsening symptoms. She verbalized understanding of these instructions. Patient is stable for discharge. Diagnosis Primary Impression: Ankle pain, right Qualified Code: M25.571 - Right ankle pain, unspecified chronicity Referrals: Primary Care Physician Patient Instructions: Ankle Exercises (GEN), Ankle Strain (ED), General Instructions Additional Instructions: Follow-up with your primary doctor Take medications as directed Rest, ice, elevate extremity Return to emergency department for any new or worsening symptoms Med/Other Pt SpecificInfo: Prescription(s) given Scripts Ibuprofen 800 Mg [id number] Mg PO Q8H PRN (Pain/Inflammation) 10 Days Ref 0 Prov:Sommer Baltazar 09/17/16 Disposition: 01 DISCHARGE HOME Condition: Stable Sommer Baltazar Sep 17, 2016 14:15
== END 2016-09-17 14:57 | disposition home or self-care (01) ==
LOC: NEPA 13:17
DX: M25.571 Pain in right ankle and joints of right foot (principal); J45.909 Unspecified asthma, uncomplicated; F41.8 Other specified anxiety disorders; E78.00 Pure hypercholesterolemia, unspecified; I10 Essential (primary) hypertension
CPT/HCPCS: 96372; 99283; J1885

== ENCOUNTER 2016-09-29 14:23 | Emergency (ER) | payer MEDICARE, OTHER ==
[~2016-09-29] VITALS: Ht 149.9 cm; Wt 72.5 kg
[~2016-09-29 14:23] MED LIST changes: +BROV15NE NEB; +BUDE.5I NEB; +IBUP800T23 PO; -ULTR50TA5 PO
[2016-09-29 14:27] VITALS: BP 146/86; PULSE 118; RESP 28; TEMP 97.8; O2SAT 92
--- NOTE | 2016-09-29 17:04 | PD ---
HPI Chief Complaint: Respiratory Symptoms Time Seen by Provider: 17:04 Travel History International Travel<30 days: No Contact w/Intl Traveler<30days: No Traveled to known affect area: No History of Present Illness HPI 30-year-old female with history of asthma and recurrent bronchitis, presents to the emergency department for evaluation of shortness of breath. Patient states that she has been using her rescue inhaler without relief of her symptoms. Woke up this morning short of breath and has not been able to get it under control. Denies any recent illnesses, fever, or chills. She has no other symptoms to report. PFSH Past Medical History Asthma: Yes Autoimmune Disease: No Blood Disorders: No Anxiety: Yes Depression: No Heart Rhythm Problems: No Cancer: No Cardiac Catheterization: No Cardiovascular Problems: Yes High Cholesterol: Yes Chest Pain: Yes Congestive Heart Failure: No COPD: No Diabetes: No Diminished Hearing: No Endocrine: No Gastrointestinal Disorders: No Glaucoma: Yes (GLAUCOMA IMPLANT ON 07-12-05) Genitourinary: No Hypertension: Yes Immune Disorder: No Musculoskeletal: No Neurologic: Yes (Blind) Psychiatric: No Reproductive: No Respiratory: Yes (ASTHMA) Immunizations Current: No Sleep Apnea: No Thyroid Disease: No ?: Not LMP: JULY 2016 Menopausal: No : 3 Para: 2 Miscarriage: 1 Past Surgical History Abdominal Surgery: Yes (MIDLINE UMBILICAL HERNIA) AICD: No Coronary Artery Bypass Graft: No Eye Surgery: Yes (prosthetic eyes ) Joint Replacement: No Oral Surgery: Yes Pacemaker: No Tonsillectomy: Yes Other Surgery: Yes Social History Alcohol Use: Yes (OCCASIONALLY) Tobacco Use: No Substance Use: Yes (MARIJUANA) Allergies-Medications (Allergen,Severity, Reaction): Coded Allergies: Macrobid (Verified Adverse Reaction, Severe, nausea and diarrhea, 09/29/16) Erythromycin (Verified Adverse Reaction, Mild, CONVULSIONS, 09/29/16) Uncoded Allergies: PROPELLANT BASED INHALERS (Allergy, Intermediate, 09/09/15) Reported Meds & Prescriptions Reported Meds & Active Scripts Active Prednisone 50 Mg Tab 50 Mg PO DAILY 4 Days Ibuprofen 800 Mg Tab 800 Mg PO Q8H PRN 10 Days Duoneb (Ipratropium-Albuterol Neb) 0.5-2.5 Mg/3 Ml Neb 1 Nebule INH Q4HR NEB Reported Brovana Neb (Arformoterol Neb) 15 Mcg/2 Ml Vial 1 Nebule NEB BID Maintenance treatment of bronchoconstriction in COPD. Pulmicort Respules (Budesonide) 0.5 Mg/2 Ml Neb 0.5 Mg NEB Q12HR NEB Theophylline ER 24 HR (Theophylline) 400 Mg Tab 400 Mg PO DAILY Singulair (Montelukast Sodium) 10 Mg Tab 10 Mg PO HS Review of Systems Except as stated in HPI: all other systems reviewed are Neg Physical Exam Narrative GENERAL: [-] SKIN: Warm and dry. HEAD: Atraumatic. Normocephalic. EYES: Pupils equal and round. No scleral icterus. No injection or drainage. ENT: No nasal bleeding or discharge. Mucous membranes pink and moist. NECK: Trachea midline. No JVD. CARDIOVASCULAR: Regular rate and rhythm. No murmur appreciated. RESPIRATORY: No accessory muscle use. Clear to auscultation. Breath sounds equal bilaterally. GASTROINTESTINAL: Abdomen soft, non-tender, nondistended. Hepatic and splenic margins not palpable. MUSCULOSKELETAL: No obvious deformities. No clubbing. No cyanosis. No edema. NEUROLOGICAL: Awake and alert. No obvious cranial nerve deficits. Motor grossly within normal limits. Normal speech. PSYCHIATRIC: Appropriate mood and affect; insight and judgment normal. Data Data Last Documented VS Vital Signs Date Time Temp Pulse Resp B/P Pulse Ox O2 Delivery O2 Flow Rate FiO2 09/29/16 17:14 99 21 09/29/16 14:27 97.8 118 28 146/86 Room Air Orders Electrocardiogram (09/29/16 ) Albuterol-Ipratropium Neb (Duoneb Neb) (09/29/16 17:15) Chest, Single Ap (09/29/16 ) Prednisone (Deltasone) (09/29/16 17:15) Complete Blood Count With Diff (09/29/16 17:08) Basic Metabolic Panel (Bmp) (09/29/16 17:08) D-Dimer (09/29/16 17:08) Theophylline Er 24 Hr (Awais-24) (09/29/16 23:45) Labs Laboratory Tests Test 09/29/16 17:20 White Blood Count 13.5 TH/MM3 Red Blood Count 4.74 MIL/MM3 Hemoglobin 14.3 GM/DL Hematocrit 41.5 % Mean Corpuscular Volume 87.7 FL Mean Corpuscular Hemoglobin 30.1 PG Mean Corpuscular Hemoglobin 34.3 % Concent Red Cell Distribution Width 13.5 % Platelet Count 280 TH/MM3 Mean Platelet Volume 8.4 FL Neutrophils (%) (Auto) 93.8 % Lymphocytes (%) (Auto) 4.6 % Monocytes (%) (Auto) 1.0 % Eosinophils (%) (Auto) 0.2 % Basophils (%) (Auto) 0.4 % Neutrophils # (Auto) 12.7 TH/MM3 Lymphocytes # (Auto) 0.6 TH/MM3 Monocytes # (Auto) 0.1 TH/MM3 Eosinophils # (Auto) 0.0 TH/MM3 Basophils # (Auto) 0.0 TH/MM3 CBC Comment AUTO DIFF Differential Total Cells 100 Counted Neutrophils % (Manual) 91 % Lymphocytes % 7 % Monocytes % 1 % Neutrophils # (Manual) 12.4 TH/MM3 Metamyelocytes 1 % Differential Comment FINAL DIFF MANUAL Platelet Estimate NORMAL Platelet Morphology Comment NORMAL D-Dimer Quantitative (PE/DVT) 0.24 MG/L FEU Sodium Level 140 MEQ/L Potassium Level 3.5 MEQ/L Chloride Level 109 MEQ/L Carbon Dioxide Level 21.0 MEQ/L Anion Gap 10 MEQ/L Blood Urea Nitrogen 10 MG/DL Creatinine 1.11 MG/DL Estimat Glomerular Filtration 57 ML/MIN Rate Random Glucose 211 MG/DL Calcium Level 8.4 MG/DL [facility] Medical Decision Making Medical Screen Exam Complete: Yes Emergency Medical Condition: Yes Medical Record Reviewed: No Differential Diagnosis pna vs bronchitis vs bronchospasm vs influenza Narrative Course Work up initiated in triage. Once a medical bed becomes available, pt will be transferred and care assumed by that provider Scripts Prednisone 50 Mg Tab50 Mg PO DAILY 4 Days Ref 0 Prov:Monica Domínguez MD 09/30/16 Condition: Stable Coleen Cuellar HANNAH Sep 29, 2016 17:04
[2016-09-29 17:14] VITALS: O2SAT 99
[2016-09-29] MEDS ORDERED: predniSONE 20 MG TAB PO ONE (17:15)
[2016-09-29] MEDS ORDERED: RESP: ALBUTEROL 2.5 MG/IPRATROPIUM 0.5 MG NEB (SCH) NEB ONE (17:15)
[2016-09-29 17:48] LABS: AUTOMATED NEUTROPHIL # 12.7 TH/MM3 (1.8-7.7); BASOPHIL % 0.4 % (0.0-2.0); EOSINOPHIL % 0.2 % (0.0-4.0); HEMATOCRIT 41.5 % (35.0-46.0); LYMPH % 4.6 % (9.0-44.0); LYMPHOCYTE # 0.6 TH/MM3 (1.0-4.8); MEAN CELL VOLUME 87.7 FL (80.0-100.0); MEAN CORPUSCULAR HEMOGLOBIN 30.1 PG (27.0-34.0); MEAN CORPUSCULAR HGB CONC 34.3 % (32.0-36.0); NEUT % 93.8 % (16.0-70.0); PLATELET COUNT 280 TH/MM3 (150-450); RED BLOOD COUNT 4.74 MIL/MM3 (4.00-5.30); RED CELL DISTRIBUTION WIDTH 13.5 % (11.6-17.2); WHITE BLOOD COUNT 13.5 TH/MM3 (4.0-11.0)
[2016-09-29 17:52] LABS: HEMO FLAGS AUTO DIFF
--- NOTE | 2016-09-29 18:01 | RADRPT ---
EXAM DATE/TIME: 09/29/2016 17:42 [facility] COMPARISON: CHEST SINGLE AP, August 28, 2016, 15:58. INDICATIONS : Short of breath. MEDICAL HISTORY : Lung disorder, going for bronchial thermoplasty in 2 days. SURGICAL HISTORY : None. ENCOUNTER: Initial ACUITY: 1 day PAIN SCORE: 0/10 LOCATION: Bilateral chest FINDINGS: A single view of the chest demonstrates the lungs to be symmetrically aerated without evidence of mas s, infiltrate or effusion. The cardiomediastinal contours are unremarkable. Osseous structures are intact. CONCLUSION: 1. No acute cardiopulmonary disease. Dneys Meng MD on September 29, 2016 at 17:59 Board Certified Radiologist. This report was verified electronically.
[2016-09-29 18:08] LABS: POTASSIUM 3.5 MEQ/L (3.5-5.1)
[2016-09-29 18:33] LABS: METAMYELOCYTES 1 % (0-1); NEUTROPHIL # MANUAL DIFF 12.4 TH/MM3 (1.8-7.7); POLYS (SEG NEUTROPHILS) 91 % (16-70); WBC DIFF SAMPLE 100
[2016-09-29 18:35] LABS: PLATELET ESTIMATE SMEAR NORMAL (NORMAL); PLATELET MORPHOLOGY NORMAL (NORMAL); SCAN/DIFF FINAL DIFF MANUAL
[2016-09-29] MEDS ORDERED: THEOPHYLLINE 200 MG EXTENDED RELEASE CAP PO ONE (23:45)
[2016-09-30] MEDS ORDERED: PRED50 PO (00:41)
--- NOTE | 2016-09-30 00:41 | PD ---
Physical Exam Narrative Patient is a 30 year old female with history of asthma, who comes in complaining of SOB. She says her asthma started to bother her earlier today. She says she was using her nebulizer without much relief. She is scheduled for a pulmonary procedure next week and wanted to make sure her breathing did not get worse and prevent her from having the procedure. She says she has had a cough. She denies fever or chills. She is usually on Theophylline, but has not had it for the past 3 days. She says there was a mix-up with the pharmacy. She says her symptoms today are typical of her usual asthma symptoms. Patient originally seen in triage and work-up begun there by [facility] [facility]. Data Data Last Documented VS Vital Signs Date Time Temp Pulse Resp B/P Pulse Ox O2 Delivery O2 Flow Rate FiO2 09/29/16 17:14 99 21 09/29/16 14:27 97.8 118 28 146/86 Room Air Orders Electrocardiogram (09/29/16 ) Albuterol-Ipratropium Neb (Duoneb Neb) (09/29/16 17:15) Chest, Single Ap (09/29/16 ) Prednisone (Deltasone) (09/29/16 17:15) Complete Blood Count With Diff (09/29/16 17:08) Basic Metabolic Panel (Bmp) (09/29/16 17:08) D-Dimer (09/29/16 17:08) Theophylline Er 24 Hr (Awais-24) (09/29/16 23:45) Labs Laboratory Tests Test 09/29/16 17:20 White Blood Count 13.5 TH/MM3 Red Blood Count 4.74 MIL/MM3 Hemoglobin 14.3 GM/DL Hematocrit 41.5 % Mean Corpuscular Volume 87.7 FL Mean Corpuscular Hemoglobin 30.1 PG Mean Corpuscular Hemoglobin 34.3 % Concent Red Cell Distribution Width 13.5 % Platelet Count 280 TH/MM3 Mean Platelet Volume 8.4 FL Neutrophils (%) (Auto) 93.8 % Lymphocytes (%) (Auto) 4.6 % Monocytes (%) (Auto) 1.0 % Eosinophils (%) (Auto) 0.2 % Basophils (%) (Auto) 0.4 % Neutrophils # (Auto) 12.7 TH/MM3 Lymphocytes # (Auto) 0.6 TH/MM3 Monocytes # (Auto) 0.1 TH/MM3 Eosinophils # (Auto) 0.0 TH/MM3 Basophils # (Auto) 0.0 TH/MM3 CBC Comment AUTO DIFF Differential Total Cells 100 Counted Neutrophils % (Manual) 91 % Lymphocytes % 7 % Monocytes % 1 % Neutrophils # (Manual) 12.4 TH/MM3 Metamyelocytes 1 % Differential Comment FINAL DIFF MANUAL Platelet Estimate NORMAL Platelet Morphology Comment NORMAL D-Dimer Quantitative (PE/DVT) 0.24 MG/L FEU Sodium Level 140 MEQ/L Potassium Level 3.5 MEQ/L Chloride Level 109 MEQ/L Carbon Dioxide Level 21.0 MEQ/L Anion Gap 10 MEQ/L Blood Urea Nitrogen 10 MG/DL Creatinine 1.11 MG/DL Estimat Glomerular Filtration 57 ML/MIN Rate Random Glucose 211 MG/DL Calcium Level 8.4 MG/DL MDM Supervised Visit with LILLIE: Yes Narrative Course Labs were sent from triage. They show an elevation in WBC count to 13.4. Patient says she took a dose of steroids prior to coming in today. CXR shows no acute abnormalities. Patient received duonebs and steroids prior to coming back from triage. She says she feels much better. Her lungs are CTA. Patient given her Theophylline here. She says she will call the pharmacy tomorrow to get her medication. Will discharge with prescription for Prednisone. Advised to follow up with her doctors. Advised to return to the ED as needed for any worsening symptoms. She is comfortable with discharge at this time. Diagnosis Primary Impression: Asthma exacerbation Patient Instructions: Asthma (ED), General Instructions Additional Instruction: Follow up with your doctors. Make sure to get your Theophylline from your pharmacy. Return to the ED as needed for any worsening symptoms. Scripts Prednisone 50 Mg Tab50 Mg PO DAILY 4 Days Ref 0 Prov:Monica Domínguez MD 09/30/16 Disposition: DISCHARGE HOME Condition: Stable Monica Domínguez MD Sep 30, 2016 00:41
--- NOTE | 2016-09-30 23:30 | EKG ---
Date Performed: 09/29/2016 Time Performed: 15:29:53 PTAGE: 30 years EKG: SINUS TACHYCARDIA ABNORMAL RHYTHM ECG INTERPRETATION BASED ON A DEFAULT AGE OF 38 YEARS PREVIOUS TRACING : 08/28/2016 21.58 DOCTOR: Damian Burton Interpretating Date/Time 09/30/2016 23:27:44
== END 2016-09-30 01:12 | disposition home or self-care (01) ==
LOC: NEPE 14:23
DX: J45.901 Unspecified asthma with (acute) exacerbation (principal); E78.00 Pure hypercholesterolemia, unspecified; I10 Essential (primary) hypertension; R94.31 Abnormal electrocardiogram [ECG] [EKG]
CPT/HCPCS: 71010; 80048; 85007; 85027; 85379; 93005; 94664; 99284; J7512

== ENCOUNTER 2016-11-02 17:26 | Emergency (ER) | payer MEDICARE, OTHER ==
[~2016-11-02] VITALS: Ht 149.9 cm; Wt 72.0 kg
[~2016-11-02 17:26] MED LIST changes: +PRED50 PO
[2016-11-02 18:14] VITALS: BP 124/78; PULSE 99; RESP 16; TEMP 98.7; O2SAT 96
[2016-11-02 19:57] VITALS: BP 124/84; PULSE 81; RESP 18; O2SAT 96
[2016-11-02] MEDS ORDERED: RESP: LIDOCAINE HCL 4% PF 5 ML NEB NEB ONE (20:15)
[2016-11-02] MEDS ORDERED: SODIUM CHLORID 0.9% 500 ML INJ 500 ML IV ONE (20:15)
[2016-11-02] MEDS ORDERED: RESP: ALBUTEROL 2.5 MG/IPRATROPIUM 0.5 MG NEB (SCH) NEB ONE (20:15)
[2016-11-02] MEDS ORDERED: methylPREDNISolone SOD SUCC 125 MG/2 ML VIAL IV PUSH ONE (20:15)
[2016-11-02] MEDS ORDERED: KETOROLAC TROMETHAMINE 30 MG/ML (IVP) VIAL IV PUSH ONE (20:15)
--- NOTE | 2016-11-02 20:19 | PD ---
HPI Chief Complaint: Respiratory Symptoms Time Seen by Provider: 20:01 Travel History International Travel<30 days: No Contact w/Intl Traveler<30days: No Traveled to known affect area: No History of Present Illness HPI The patient is a 30-year-old female who is legally blind who presents emergency department via EMS from a senior living for cough and cold symptoms. The patient is a 2 day history of cough and cold symptoms that include dry nonproductive cough, nasal congestion, headache, and mild body aches. The patient denies any nausea, vomiting, diarrhea, or abdominal pain. She does have a history of asthma and is on oxygen at home as needed. The patient does have a history of bronchitis. The patient denies any actual fever. Symptoms are moderate, there are no known alleviating or exacerbating factors. The patient did not receive an influenza vaccination this year. PFSH Past Medical History Asthma: Yes Autoimmune Disease: No Blood Disorders: No Anxiety: Yes Depression: No Heart Rhythm Problems: No Cancer: No Cardiac Catheterization: No Cardiovascular Problems: Yes High Cholesterol: Yes Chest Pain: Yes Congestive Heart Failure: No COPD: No Diabetes: No Diminished Hearing: No Endocrine: No Gastrointestinal Disorders: No Glaucoma: Yes (GLAUCOMA IMPLANT ON 07-12-05) Genitourinary: No Hypertension: Yes Immune Disorder: No Musculoskeletal: No Neurologic: Yes (Blind) Psychiatric: No Reproductive: No Respiratory: Yes (ASTHMA) Immunizations Current: No Sleep Apnea: No Thyroid Disease: No ?: Unknown Menopausal: No : 3 Para: 2 Miscarriage: 1 Past Surgical History Abdominal Surgery: Yes (MIDLINE UMBILICAL HERNIA) AICD: No Coronary Artery Bypass Graft: No Eye Surgery: Yes (prosthetic eyes ) Joint Replacement: No Oral Surgery: Yes Pacemaker: No Tonsillectomy: Yes Other Surgery: Yes Family History Family Myocardial Infarction: Yes Social History Alcohol Use: Yes (OCCASIONALLY) Tobacco Use: No Substance Use: Yes (MARIJUANA) Allergies-Medications (Allergen,Severity, Reaction): Coded Allergies: Macrobid (Verified Adverse Reaction, Severe, nausea and diarrhea, 11/02/16) Erythromycin (Verified Adverse Reaction, Mild, CONVULSIONS, 11/02/16) Uncoded Allergies: PROPELLANT BASED INHALERS (Allergy, Intermediate, 09/09/15) Reported Meds & Prescriptions Reported Meds & Active Scripts Active Duoneb (Ipratropium-Albuterol Neb) 0.5-2.5 Mg/3 Ml Neb 1 Nebule INH Q4HR NEB Reported Brovana Neb (Arformoterol Neb) 15 Mcg/2 Ml Vial 1 Nebule NEB BID Maintenance treatment of bronchoconstriction in COPD. Pulmicort Respules (Budesonide) 0.5 Mg/2 Ml Neb 0.5 Mg NEB Q12HR NEB Theophylline ER 24 HR (Theophylline) 400 Mg Tab 400 Mg PO DAILY Singulair (Montelukast Sodium) 10 Mg Tab 10 Mg PO HS Review of Systems Except as stated in HPI: all other systems reviewed are Neg General / Constitutional: No: Fever HENT: Positive: Headaches, Sore Throat, Congestion Cardiovascular: No: Chest Pain or Discomfort Respiratory: Positive: Cough, Shortness of Breath Gastrointestinal: No: Nausea, Vomiting, Diarrhea, Abdominal Pain Genitourinary: No: Dysuria Musculoskeletal: Positive: Myalgias Physical Exam Narrative GENERAL: Awake, alert, pleasant 30-year-old female who appears her stated age and is in no acute respiratory distress. SKIN: Focused skin assessment warm/dry. HEAD: Atraumatic. Normocephalic. EYES: Eyes are closed. ENT: No nasal bleeding or discharge. Mild erythema but no exudate. NECK: Trachea midline. No JVD. CARDIOVASCULAR: Regular rate and rhythm. No murmur appreciated. RESPIRATORY: No accessory muscle use. Few prolonged expiratory phases with scattered wheezes. GASTROINTESTINAL: Abdomen soft, non-tender, nondistended. No rebound tenderness. MUSCULOSKELETAL: No obvious deformities. No clubbing. No cyanosis. No edema. NEUROLOGICAL: Awake and alert. Blind. Motor grossly within normal limits. Normal speech. Follows commands without difficulty. PSYCHIATRIC: Appropriate mood and affect; insight and judgment normal. Data Data Last Documented VS Vital Signs Date Time Temp Pulse Resp B/P Pulse Ox O2 Delivery O2 Flow Rate FiO2 11/02/16 19:57 81 96 Room Air 11/02/16 19:57 18 124/84 11/02/16 18:14 98.7 Orders Chest, Single Ap (11/02/16 ) Influenzae A/B Antigen (11/02/16 20:11) Complete Blood Count With Diff (11/02/16 20:11) Basic Metabolic Panel (Bmp) (11/02/16 20:11) Albuterol-Ipratropium Neb (Duoneb Neb) (11/02/16 20:15) Lidocaine Pf 4% Neb (Lidocaine Pf 4% Neb (11/02/16 20:15) Methylprednisolone So Succ Inj (Solumedr (11/02/16 20:15) Ketorolac Inj (Toradol Inj) (11/02/16 20:15) Sodium Chlorid 0.9% 500 Ml Inj (Ns 500 M (11/02/16 20:15) Labs Laboratory Tests Test 11/02/16 20:50 White Blood Count 12.4 TH/MM3 Red Blood Count 4.69 MIL/MM3 Hemoglobin 14.4 GM/DL Hematocrit 41.3 % Mean Corpuscular Volume 88.0 FL Mean Corpuscular Hemoglobin 30.6 PG Mean Corpuscular Hemoglobin 34.8 % Concent Red Cell Distribution Width 13.4 % Platelet Count 313 TH/MM3 Mean Platelet Volume 8.4 FL Neutrophils (%) (Auto) 93.8 % Lymphocytes (%) (Auto) 4.9 % Monocytes (%) (Auto) 1.0 % Eosinophils (%) (Auto) 0.0 % Basophils (%) (Auto) 0.3 % Neutrophils # (Auto) 11.6 TH/MM3 Lymphocytes # (Auto) 0.6 TH/MM3 Monocytes # (Auto) 0.1 TH/MM3 Eosinophils # (Auto) 0.0 TH/MM3 Basophils # (Auto) 0.0 TH/MM3 CBC Comment DIFF FINAL Differential Comment Sodium Level 139 MEQ/L Potassium Level 3.3 MEQ/L Chloride Level 105 MEQ/L Carbon Dioxide Level 24.4 MEQ/L Anion Gap 10 MEQ/L Blood Urea Nitrogen 8 MG/DL Creatinine 0.72 MG/DL Estimat Glomerular Filtration 94 ML/MIN Rate Random Glucose 137 MG/DL Calcium Level 9.1 MG/DL MDM Medical Decision Making Medical Screen Exam Complete: Yes Emergency Medical Condition: Yes Medical Record Reviewed: Yes Interpretation(s) Last Impressions Chest X-Ray 11/02/16 0000 Signed Impressions: Service Date/Time: Wednesday, November 02, 2016 20:31 - CONCLUSION: No acute disease. Phillip Meraz MD Laboratory Tests Test 11/02/16 20:50 White Blood Count 12.4 TH/MM3 Red Blood Count 4.69 MIL/MM3 Hemoglobin 14.4 GM/DL Hematocrit 41.3 % Mean Corpuscular Volume 88.0 FL Mean Corpuscular Hemoglobin 30.6 PG Mean Corpuscular Hemoglobin 34.8 % Concent Red Cell Distribution Width 13.4 % Platelet Count 313 TH/MM3 Mean Platelet Volume 8.4 FL Neutrophils (%) (Auto) 93.8 % Lymphocytes (%) (Auto) 4.9 % Monocytes (%) (Auto) 1.0 % Eosinophils (%) (Auto) 0.0 % Basophils (%) (Auto) 0.3 % Neutrophils # (Auto) 11.6 TH/MM3 Lymphocytes # (Auto) 0.6 TH/MM3 Monocytes # (Auto) 0.1 TH/MM3 Eosinophils # (Auto) 0.0 TH/MM3 Basophils # (Auto) 0.0 TH/MM3 CBC Comment DIFF FINAL Differential Comment Sodium Level 139 MEQ/L Potassium Level 3.3 MEQ/L Chloride Level 105 MEQ/L Carbon Dioxide Level 24.4 MEQ/L Anion Gap 10 MEQ/L Blood Urea Nitrogen 8 MG/DL Creatinine 0.72 MG/DL Estimat Glomerular Filtration 94 ML/MIN Rate Random Glucose 137 MG/DL Calcium Level 9.1 MG/DL Date/Time Procedure Status Source Growth 11/02/16 20:45 Influenza Types A,B Antigen (CHARLIE) - Final Complete Nasal Aspirate NEGATIVE FOR FLU A AND B ANTIGEN.... Differential Diagnosis Differential diagnosis includes bronchitis, pneumonia, URI, viral syndrome, influenza. Narrative Course IV was established, labs were drawn and sent, and the patient was placed on cardiac telemetry monitoring and continuous pulse oximetry monitoring. Influenza screen was sent to lab. Chest x-ray was obtained. The patient was administered Solu-Medrol and DuoNeb with respiratory lidocaine. Chest x-ray was negative. Influenza screen is negative. White count is mildly elevated, otherwise labs are unremarkable. Patient most likely has bronchitis, does have a history of asthma. The patient will be placed on prednisone, Zithromax, and is advised to continue albuterol nebulizers at home and oxygen as needed. Diagnosis Primary Impression: Bronchitis Patient Instructions: General Instructions Additional Instructions: Medications as directed. Follow-up with her primary physician. Return if symptoms worsen or progress. Med/Other Pt SpecificInfo: Prescription(s) given Scripts Prednisone (Deltasone)20 Mg Tab40 Mg PO DAILY 4 Days Ref 0 Prov:Pedro Luis Márquez MD 4/5/17 Azithromycin (Zithromax Z-Da)250 Mg Apny813 Mg PO DIRECTED #1 DSPK Ref 0 500 MG (2 tabs) day 1, then 1 tab days 2-5. Prov:Pedro Luis Márquez MD 11/02/16 Disposition: 01 DISCHARGE HOME Condition: Stable Pedro Luis Márquez MD Nov 02, 2016 20:19
--- NOTE | 2016-11-02 20:41 | RADRPT ---
EXAM DATE/TIME: 11/02/2016 20:31 [facility] COMPARISON: CHEST SINGLE AP, September 29, 2016, 17:42. INDICATIONS : Cough, shortness of breath for 3 days MEDICAL HISTORY : Asthma SURGICAL HISTORY : None. ENCOUNTER: Initial ACUITY: 3 days PAIN SCORE: 0/10 LOCATION: Bilateral chest FINDINGS: A single view of the chest demonstrates the lungs to be symmetrically aerated without evidence of mas s, infiltrate or effusion. The cardiomediastinal contours are unremarkable. Osseous structures are intact. CONCLUSION: No acute disease. Phillip Meraz MD on November 02, 2016 at 20:38 Board Certified Radiologist. This report was verified electronically.
[2016-11-02 21:01] LABS: AUTOMATED NEUTROPHIL # 11.6 TH/MM3 (1.8-7.7); BASOPHIL % 0.3 % (0.0-2.0); HEMATOCRIT 41.3 % (35.0-46.0); HEMO FLAGS DIFF FINAL; LYMPH % 4.9 % (9.0-44.0); LYMPHOCYTE # 0.6 TH/MM3 (1.0-4.8); MEAN CORPUSCULAR HEMOGLOBIN 30.6 PG (27.0-34.0); MEAN CORPUSCULAR HGB CONC 34.8 % (32.0-36.0); NEUT % 93.8 % (16.0-70.0); PLATELET COUNT 313 TH/MM3 (150-450); RED BLOOD COUNT 4.69 MIL/MM3 (4.00-5.30); RED CELL DISTRIBUTION WIDTH 13.4 % (11.6-17.2); WHITE BLOOD COUNT 12.4 TH/MM3 (4.0-11.0)
[2016-11-02 21:27] LABS: BICARBONATE 24.4 MEQ/L (21.0-32.0); POTASSIUM 3.3 MEQ/L (3.5-5.1)
[2016-11-02] MEDS ORDERED: ZITHTAB PO (21:55)
[2016-11-02] MEDS ORDERED: PRED-503 PO (21:55)
[2016-11-02] MEDS ORDERED: AZITHROMYCIN 250 MG TAB PO ONE (22:15)
== END 2016-11-02 22:41 | disposition home or self-care (01) ==
LOC: NEPD 17:26
DX: J40 Bronchitis, not specified as acute or chronic (principal); R09.81 Nasal congestion; R51 Headache; M79.1 Myalgia; I10 Essential (primary) hypertension; E78.00 Pure hypercholesterolemia, unspecified; H54.8 Legal blindness, as defined in USA; Z87.09 Personal history of other diseases of the respiratory system; Z86.59 Personal history of other mental and behavioral disorders; Z86.79 Personal history of other diseases of the circulatory system; Z86.69 Personal history of other diseases of the nervous system and sense organs
CPT/HCPCS: 71010; 80048; 85025; 87804; 94664; 96374; 99284; J1885; J7040

== ENCOUNTER 2016-12-18 21:42 | Observation (INO) | payer MEDICARE, OTHER ==
[~2016-12-18] VITALS: Ht 149.9 cm; Wt 75.0 kg
[~2016-12-18 21:42] MED LIST changes: -IBUP800T23 PO; +PRED-503 PO; -PRED50 PO; +ZITHTAB PO
[2016-12-18 21:47] VITALS: BP 139/91; PULSE 116; RESP 22; TEMP 98.6; O2SAT 96
[2016-12-18] MEDS ORDERED: SODIUM CHLORIDE 0.9% FLUSH 10 ML FLUSH IVF PRN (22:15)
[2016-12-18 22:20] VITALS: O2SAT 98
[2016-12-18] MEDS: RESP: ALBUTEROL 2.5 MG/IPRATROPIUM 0.5 MG NEB (SCH) INH (22:24)
--- NOTE | 2016-12-18 22:28 | RADRPT ---
EXAM DATE/TIME: 12/18/2016 22:11 [facility] COMPARISON: CHEST SINGLE AP, November 02, 2016, 20:31. INDICATIONS : Short of breath MEDICAL HISTORY : Asthma SURGICAL HISTORY : None. ENCOUNTER: Initial ACUITY: 2 days PAIN SCORE: 0/10 LOCATION: Bilateral chest FINDINGS: A single view of the chest demonstrates the lungs to be symmetrically aerated without evidence of mas s, infiltrate or effusion. The cardiomediastinal contours are unremarkable. Osseous structures are intact. CONCLUSION: No evidence of acute cardiopulmonary disease. Keon Blandon MD on December 18, 2016 at 22:27 Board Certified Radiologist. This report was verified electronically.
[2016-12-18] MEDS ORDERED: methylPREDNISolone SOD SUCC 125 MG/2 ML VIAL IV PUSH ONE (22:30)
[2016-12-18] MEDS ORDERED: SODIUM CHLOR 0.9% 1000 ML INJ 1,000 ML IV ONE (22:30)
[2016-12-18 22:37] VITALS: O2SAT 98
--- NOTE | 2016-12-18 22:37 | PD ---
HPI Chief Complaint: Respiratory Distress Time Seen by Provider: 21:46 Travel History International Travel<30 days: No Contact w/Intl Traveler<30days: No Traveled to known affect area: No History of Present Illness HPI The patient is a 31 year old female who presents to the [facility] emergency department with a history of shortness of breath that she reports began last night. The patient reports that she has a long-standing history of asthma. She reports that when the symptoms began to worsen is morning she took 50 mg of prednisone. She reports that she has is on standby in case of emergencies. Her primary care physician is Dr. Decker. She reports that she's had a dry cough. She reports that she recently completed a course of antibiotic , however she cannot recall the name of the antibiotic. The patient reports that she has a CPAP machine at home that she has been using throughout the day today to assist with this exacerbation of her asthma. She reports that this is the only thing that has helped with the respiratory fatigue. She reports that the cough is dry in character. She denies any fevers. She denies having any vomiting or diarrhea. She reports that she has had a diminished appetite today and has not been eating well. The patient denies any neck pain, abdominal pain, vomiting, diarrhea, urinary symptoms, or neurologic symptoms. [facility] Past Medical History Narrative Medical The patient's past medical history is significant for asthma, history of being legally blind, history of glaucoma, anxiety disorder. Asthma: Yes Autoimmune Disease: No Blood Disorders: No Anxiety: Yes Depression: No Heart Rhythm Problems: No Cancer: No Cardiac Catheterization: No Cardiovascular Problems: Yes High Cholesterol: Yes Chest Pain: Yes Congestive Heart Failure: No COPD: No Diabetes: No Diminished Hearing: No Endocrine: No Gastrointestinal Disorders: No Glaucoma: Yes (GLAUCOMA IMPLANT ON 07-12-05) Genitourinary: No Hypertension: Yes Immune Disorder: No Musculoskeletal: No Neurologic: Yes (Blind) Psychiatric: No Reproductive: No Respiratory: Yes (ASTHMA) Immunizations Current: No Sleep Apnea: No Thyroid Disease: No ?: Unknown LMP: 12/04/16 Menopausal: No : 3 Para: 2 Miscarriage: 1 Past Surgical History Narrative Surgical The patient's past surgical history is significant for umbilical hernia repair, prosthetic eyes, tonsillectomy. Abdominal Surgery: Yes (MIDLINE UMBILICAL HERNIA) AICD: No Coronary Artery Bypass Graft: No Eye Surgery: Yes (prosthetic eyes ) Joint Replacement: No Oral Surgery: Yes Pacemaker: No Tonsillectomy: Yes Other Surgery: Yes Family History Family Myocardial Infarction: Yes Social History Alcohol Use: Yes (OCCASIONALLY) Tobacco Use: No Substance Use: Yes (MARIJUANA) Allergies-Medications (Allergen,Severity, Reaction): Coded Allergies: Macrobid (Verified Adverse Reaction, Severe, nausea and diarrhea, 12/18/16) Erythromycin (Verified Adverse Reaction, Mild, CONVULSIONS, 12/18/16) Uncoded Allergies: PROPELLANT BASED INHALERS (Allergy, Intermediate, 09/09/15) Reported Meds & Prescriptions Reported Meds & Active Scripts Active Duoneb (Ipratropium-Albuterol Neb) 0.5-2.5 Mg/3 Ml Neb 1 Nebule INH Q4HR NEB Reported Brovana Neb (Arformoterol Neb) 15 Mcg/2 Ml Vial 1 Nebule NEB BID Maintenance treatment of bronchoconstriction in COPD. Pulmicort Respules (Budesonide) 0.5 Mg/2 Ml Neb 0.5 Mg NEB Q12HR NEB Theophylline ER 24 HR (Theophylline) 400 Mg Tab 400 Mg PO DAILY Singulair (Montelukast Sodium) 10 Mg Tab 10 Mg PO HS Review of Systems Except as stated in HPI: all other systems reviewed are Neg General / Constitutional: No: Fever Eyes: No: Visual changes HENT: No: Headaches Cardiovascular: Positive: Chest Pain or Discomfort (chest tightness), Dyspnea on exertion Respiratory: Positive: Cough, Shortness of Breath Gastrointestinal: Positive: Loss of Appetite, No: Nausea, Vomiting, Diarrhea, Abdominal Pain Genitourinary: No: Dysuria Musculoskeletal: No: Pain Skin: No Rash Neurologic: No: Weakness, Focal Abnormalities, Change in Mentation, Slurred Speech, Sensory Disturbance Psychiatric: No: Depression Endocrine: No: Polydipsia Hematologic/Lymphatic: No: Easy Bruising Physical Exam Narrative General: The patient is a well-developed well-nourished female in no acute distress. Head and Neck exam: Head is normocephalic atraumatic. 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 Nose: Midline septum with pink mucous membranes Mouth: Dentition unremarkable. Moist mucus membranes. Posterior oropharynx is not erythematous. No tonsillar hypertrophy. Uvula midline. Airway patent. Neck: No palpable lymphadenopathy. No nuchal rigidity. No thyromegaly. Cardiovascular: Sinus tachycardia in the 1 teens without murmurs, gallops, or rubs. No pulse deficit to the extremities and simultaneous auscultation and palpation of her radial artery. Lungs: Soft expiratory wheezes audible bilaterally, no rhonchi, no crackles. No accessory muscle use. No tripoding. No paroxysmal abdominal breathing. Abdomen: Soft, without tenderness to palpation in all 4 quadrants of the abdomen. No guarding, rebound, or rigidity. Normal bowel sounds are audible. No tenderness on palpation of McBurney's point. Extremities: No clubbing, cyanosis, or edema. 2+ pulses in all 4 extremities. No calf tenderness on palpation. Back: No spinous process tenderness to palpation. No costovertebral angle tenderness to palpation. Neurologic Exam: Grossly nonfocal. Skin Exam: No rash noted. Intact skin that is warm and dry. Data Data Last Documented VS Vital Signs Date Time Temp Pulse Resp B/P Pulse Ox O2 Delivery O2 Flow Rate FiO2 12/18/16 22:37 98 40 12/18/16 22:20 Nasal Cannula 2.00 12/18/16 21:51 112 22 12/18/16 21:47 98.6 139/91 Orders Complete Blood Count With Diff (12/18/16 22:07) Comprehensive Metabolic Panel (12/18/16 22:07) B-Type Natriuretic Peptide (12/18/16 22:07) Iv Access Insert/Monitor (12/18/16 22:07) Electrocardiogram (12/18/16 22:07) Ecg Monitoring (12/18/16 22:07) Oximetry (12/18/16 22:07) Oxygen Administration (12/18/16 22:07) Chest, Single Ap (12/18/16 22:07) Sodium Chloride 0.9% Flush (Ns Flush) (12/18/16 22:15) Albuterol-Ipratropium Neb (Duoneb Neb) (12/18/16 22:15) Ed Urine Pregnancytest Poc (12/18/16 22:07) Methylprednisolone So Succ Inj (Solumedr (12/18/16 22:30) Sodium Chlor 0.9% 1000 Ml Inj (Ns 1000 M (12/18/16 22:30) Resp Bipap / Cpap Non Invas Vt (12/18/16 ) Theophylline (Aminophylline) (12/18/16 22:38) Admit Order (Ed Use Only) (12/19/16 00:31) Labs Laboratory Tests Test 12/18/16 22:45 White Blood Count 14.2 TH/MM3 Red Blood Count 4.68 MIL/MM3 Hemoglobin 14.2 GM/DL Hematocrit 42.2 % Mean Corpuscular Volume 90.2 FL Mean Corpuscular Hemoglobin 30.4 PG Mean Corpuscular Hemoglobin 33.7 % Concent Red Cell Distribution Width 13.4 % Platelet Count 194 TH/MM3 Mean Platelet Volume 8.1 FL Neutrophils (%) (Auto) 89.2 % Lymphocytes (%) (Auto) 7.4 % Monocytes (%) (Auto) 3.2 % Eosinophils (%) (Auto) 0.0 % Basophils (%) (Auto) 0.2 % Neutrophils # (Auto) 12.6 TH/MM3 Lymphocytes # (Auto) 1.0 TH/MM3 Monocytes # (Auto) 0.4 TH/MM3 Eosinophils # (Auto) 0.0 TH/MM3 Basophils # (Auto) 0.0 TH/MM3 CBC Comment DIFF FINAL Differential Comment Sodium Level 141 MEQ/L Potassium Level 3.9 MEQ/L Chloride Level 109 MEQ/L Carbon Dioxide Level 21.0 MEQ/L Anion Gap 11 MEQ/L Blood Urea Nitrogen 17 MG/DL Creatinine 0.88 MG/DL Estimat Glomerular Filtration 74 ML/MIN Rate Random Glucose 166 MG/DL Calcium Level 8.7 MG/DL Total Bilirubin 0.2 MG/DL Aspartate Amino Transf 22 U/L (AST/SGOT) Alanine Aminotransferase 41 U/L (ALT/SGPT) Alkaline Phosphatase 85 U/L B-Type Natriuretic Peptide LESS THAN 2 PG/ML Total Protein 6.8 GM/DL Albumin 3.6 GM/DL Theophylline Level LESS THAN 2.0 MCG/ML MDM Medical Decision Making Medical Screen Exam Complete: Yes Emergency Medical Condition: Yes Medical Record Reviewed: Yes Interpretation(s) Last Impressions Chest X-Ray 12/18/162206 Signed Impressions: Service Date/Time: Sunday, December 18, 2016 22:11 - CONCLUSION: No evidence of acute cardiopulmonary disease. Keon Blandon MD Differential Diagnosis Asthma exacerbation, versus anxiety, versus pneumothorax, versus pneumonia Narrative Course During the course of the patients emergency department visit, the patients history, examination, and differential diagnosis were reviewed with the patient. The patient had IV access obtained and blood work sent for analysis. The patient was placed on a property assessment monitor with oximetry and blood pressure monitoring. An EKG was done on arrival. The patient's EKG shows a sinus tachycardia with a short OK interval, heart rate of 112, incomplete right bundle branch block is noted, QRS duration is 106 ms, QTC 409 ms. The patient' s tachycardia could be related to the patient being on theophylline. A theophylline level has been ordered. A chest x-ray was ordered. The patient's electronic medical record was reviewed. The patient in July 2016 was admitted and evaluated for chest tightness, chest pain. The patient underwent a CTA to rule out PE which was negative for pulmonary embolus. The patient was initially provided DuoNeb nebs 2, the patient requested to be placed on BiPAP due to respiratory fatigue the patient was placed on. BiPAP 10/ 5/40% which will be weaned as tolerated. The patients laboratory studies were reviewed and remarkable for a white count of 14.2, hemoglobin 14.2, platelets 194 with 89.2 neutrophils, lymphocytes 7.4. CMP is remarkable for a chloride of 109, glucose 166, BNP is less than 2, theophylline is less than 2 Radiology studies were reviewed and remarkable for a chest x-ray that shows no evidence of acute cardiopulmonary disease. The patients results were discussed with the patient, including the plan of care. I explained that further testing and/ or monitoring is indicated based on the patients history, examination, and/ or laboratory findings. Therefore, I recommended admission for additional evaluation. The patient expressed understanding and was agreeable with this plan. The patient was admitted to the hospital in stable condition and [facility] Physician Communication Physician Communication The patient's case is discussed with Dr. Low who did agree to admit the patient for further evaluation and treatment at this time. Diagnosis Primary Impression: Asthma exacerbation Admitting Information Admitting Physician Requests: Observation Nicolle Elizabeth MD December 18, 2016 22:37
[2016-12-18 22:51] LABS: AUTOMATED NEUTROPHIL # 12.6 TH/MM3 (1.8-7.7); BASOPHIL % 0.2 % (0.0-2.0); HEMATOCRIT 42.2 % (35.0-46.0); HEMO FLAGS DIFF FINAL; LYMPH % 7.4 % (9.0-44.0); MEAN CELL VOLUME 90.2 FL (80.0-100.0); MEAN CORPUSCULAR HEMOGLOBIN 30.4 PG (27.0-34.0); MEAN CORPUSCULAR HGB CONC 33.7 % (32.0-36.0); MONO % 3.2 % (0.0-8.0); NEUT % 89.2 % (16.0-70.0); PLATELET COUNT 194 TH/MM3 (150-450); RED BLOOD COUNT 4.68 MIL/MM3 (4.00-5.30); RED CELL DISTRIBUTION WIDTH 13.4 % (11.6-17.2); WHITE BLOOD COUNT 14.2 TH/MM3 (4.0-11.0)
[2016-12-18 23:14] LABS: ALKALINE PHOSPHATASE 85 U/L (45-117); TOTAL BILIRUBIN ADULT 0.2 MG/DL (0.2-1.0)
[2016-12-18 23:15] LABS: ALT (GPT) 41 U/L (10-53); ANION GAP 11 MEQ/L (5-15); AST (GOT) 22 U/L (15-37); BLOOD UREA NITROGEN 17 MG/DL (7-18); CHLORIDE 109 MEQ/L (98-107); GLOMERULAR FILTRATION RATE 74 ML/MIN (>89); POTASSIUM 3.9 MEQ/L (3.5-5.1); SODIUM (NA) 141 MEQ/L (136-145)
[2016-12-19] VITALS (13 sets, daily range): BP systolic 121–154; BP diastolic 74–100; PULSE 101–124; RESP 18–22; TEMP 97.2–98.6; O2SAT 95–100
[2016-12-19] MEDS ORDERED: BISACODYL 10 MG SUPP RECTAL PRN (00:30)
[2016-12-19] MEDS ORDERED: ACETAMINOPHEN 325 MG TAB PO PRN (00:30)
[2016-12-19] MEDS ORDERED: ONDANSETRON HCL 4 MG/2 ML VIAL IVP PRN (00:30)
[2016-12-19] MEDS ORDERED: SODIUM CHLORIDE 0.9% FLUSH 10 ML FLUSH IV FLUSH PRN (00:30)
[2016-12-19] MEDS ORDERED: ACETAMINOPHEN/HYDROcodone 325 MG/5 MG TAB PO PRN (00:30)
[2016-12-19] MEDS: RESP: ALBUTEROL 2.5 MG/3 ML NEB (PRN) NEB ×2 (02:32→05:38)
[2016-12-19] MEDS: ACETAMINOPHEN/HYDROcodone 325 MG/10 MG TAB PO PRN ×4 (02:51→21:11)
--- NOTE | 2016-12-19 03:41 | HHI.HP ---
[facility] Service [facility] Primary Care Physician No Primary Care Physician Admission Diagnosis Asthma exacerbation Diagnoses: (1) Asthma Diagnosis: Principal (2) Leukocytosis Diagnosis: Principal (3) Dehydration Diagnosis: Principal Travel History International Travel<30 Days: No Contact w/Intl Traveler <30 Da: No Traveled to Known Affected Are: No History of Present Illness This is a 31-year-old female with a PMH of Asthma, Glaucoma, Legally Blind and Anxiety who presented to the ER with complaints of SOB and wheezing starting last night. This morning had persistent symptoms and took Prednisone 50mg, which she normally does when she has an exacerbation. Has also been using home CPAP and Nebulizers at home with minimal relief. Denies fever or chills, but reports associated non-productive cough. No sick contacts. Recently completed course of antibiotics as outpatient, however can't recall name. On arrival, BP 154/100, HR 110, O2 sat 96% on RA, Afebrile. On arrival, patient requesting BiPAP secondary to fatigue, despite normal O2 saturations. WBC 14.2. Chemistry unremarkable except for GFR 74. Theophylline level subtherapeutic. CXR with no acute findings. S/p Solu-Medrol and DuoNeb in the ER with some improvement, ultimately weaned off of BiPAP. Review of Systems Except as stated in HPI: all other systems reviewed are Neg ROS: 14 point review of systems otherwise negative. Past Family Social History Past Medical History PMH: Asthma, Glaucoma, Legally Blind and Anxiety Past Surgical History PAST SURGICAL HISTORY: Umbilical Hernia Repair, Eye Prosthesis, Tonsillectomy Allergies: Coded Allergies: Macrobid (Verified Adverse Reaction, Severe, nausea and diarrhea, 12/18/16) Erythromycin (Verified Adverse Reaction, Mild, CONVULSIONS, 12/18/16) Uncoded Allergies: PROPELLANT BASED INHALERS (Allergy, Intermediate, 09/09/15) Family History PAST FAMILY HISTORY: Reviewed. No h/o DM or CAD Social History PAST SOCIAL HISTORY: Occasional alcohol. Negative for tobacco. Positive for Marijuana. Physical Exam Vital Signs Vital Signs Date Time Temp Pulse Resp B/P Pulse Ox O2 Delivery O2 Flow Rate FiO2 5/22/17 02:10 98.6 102 20 142/87 97 12/19/16 01:35 101 20 98 Nasal Cannula 2 12/19/16 01:30 98 Nasal Cannula 2 12/19/16 01:29 100 Nasal Cannula 2.00 12/19/16 00:50 110 22 154/100 100 BiPAP 12/18/16 22:37 98 40 12/18/16 22:20 98 Nasal Cannula 2.00 12/18/16 22:00 99 Nasal Cannula 2 12/18/16 21:51 112 22 96 Room Air 12/18/16 21:47 98.6 116 22 139/91 96 Physical Exam PE: GENERAL: Young white female in no acute distress. HEENT: Bilateral eye prosthesis. No scleral icterus or conjunctival pallor. No lid lag or facial droop. CARDIOVASCULAR: Regular rate and rhythm. No obvious murmurs to auscultation. No chest tenderness to palpation. RESPIRATORY: No obvious rhonchi. + wheezing. Clear to auscultation. Breath sounds equal bilaterally. GASTROINTESTINAL: Abdomen soft, non-tender, nondistended. BS normal. MUSCULOSKELETAL: Extremities without clubbing, cyanosis, or edema. No obvious deformities. NEUROLOGICAL: Awake, alert and oriented x4. No focal neurologic deficits. Moving both upper and lower extremities spontaneously. Laboratory Laboratory Tests Test 12/18/16 22:45 White Blood Count 14.2 Red Blood Count 4.68 Hemoglobin 14.2 Hematocrit 42.2 Mean Corpuscular Volume 90.2 Mean Corpuscular Hemoglobin 30.4 Mean Corpuscular Hemoglobin 33.7 Concent Red Cell Distribution Width 13.4 Platelet Count 194 Mean Platelet Volume 8.1 Neutrophils (%) (Auto) 89.2 Lymphocytes (%) (Auto) 7.4 Monocytes (%) (Auto) 3.2 Eosinophils (%) (Auto) 0.0 Basophils (%) (Auto) 0.2 Neutrophils # (Auto) 12.6 Lymphocytes # (Auto) 1.0 Monocytes # (Auto) 0.4 Eosinophils # (Auto) 0.0 Basophils # (Auto) 0.0 CBC Comment DIFF FINAL Differential Comment Sodium Level 141 Potassium Level 3.9 Chloride Level 109 Carbon Dioxide Level 21.0 Anion Gap 11 Blood Urea Nitrogen 17 Creatinine 0.88 Estimat Glomerular Filtration 74 Rate Random Glucose 166 Calcium Level 8.7 Total Bilirubin 0.2 Aspartate Amino Transf 22 (AST/SGOT) Alanine Aminotransferase 41 (ALT/SGPT) Alkaline Phosphatase 85 B-Type Natriuretic Peptide LESS THAN 2 Total Protein 6.8 Albumin 3.6 Theophylline Level LESS THAN 2.0 Result Diagram: 12/18/16224412/18/162244 Assessment and Plan Problem List: (1) Asthma ICD Code: J45.909 Status: Chronic (2) Leukocytosis ICD Code: D72.829 Status: Acute (3) Dehydration ICD Code: E86.0 Status: Acute Assessment and Plan A/P: 1. Asthma: Acute Exacerbation, +wheezing, O2 sat 96% on RA upon arrival, however pt requesting BIPAP due to respiratory fatigue, now weaned off, O2 sat 98% on 2L NC. S/p Solu-Medrol and DuoNeb w/ some improvement. Continue Solu- Medrol, Neb q4h and q2hr prn, resume home medications. Theophylline subtherapeutic, will resume. 2. Leukocytosis: WBC 14.2, w/ elevated neutrophil count. CXR w/ no acute findings, images reviewed by me, however in light of significant respiratory distress and recurrent Asthma, will start on empiric treatment for Atypical PNA. Repeat labs in am. 3. Dehydration: GFR 74, BUN/Creatinine normal. Likely secondary to increased respiratory losses, s/p IVF in ER, will repeat labs in am. 4. DVT Prophylaxis: SCD/teds. 5. Social work for DC planning as needed. 6. Case discussed at length with ER physician. Sommer Low MD December 19, 2016 03:41
[2016-12-19] MEDS: LEVOFLOXACIN 750 MG PREMIX INJ 150 ML IV SCH (05:21)
[2016-12-19] MEDS ORDERED: methylPREDNISolone SOD SUCC 40 MG/1 ML VIAL IV PUSH SCH (06:00)
[2016-12-19] MEDS ORDERED: MOXIFLOXACIN 400 MG PREMIX 250 ML IV SCH (06:00)
[2016-12-19] MEDS: RESP: BUDESONIDE 0.5 MG/2 ML NEB NEB SCH ×2 (08:05→19:32)
[2016-12-19] MEDS: RESP: ALBUTEROL 2.5 MG/3 ML NEB (SCH) NEB ×4 (08:05→19:32)
[2016-12-19] MEDS: THEOPHYLLINE 200 MG EXTENDED RELEASE CAP PO SCH (08:28)
[2016-12-19] MEDS: SODIUM CHLORIDE 0.9% FLUSH 10 ML FLUSH IV FLUSH SCH ×2 (08:28→21:00)
[2016-12-19] MEDS ORDERED: BUDESONIDE-FORMOTEROL 160/4.5 MCG INHALER INH SCH (09:00)
--- NOTE | 2016-12-19 12:44 | HHI.PR ---
Subjective Remarks Follow up for asthma exacerbation. The patient reports minimal improvement overnight, still short of breath, worse with minimal exertion. Patient states she attempted to get up to the bedside commode and felt very short of breath although she does not believe she is wheezing. Still with dry nonproductive cough. Denies fevers/chills but states she does feel flushed. She reports diffuse chest and posterior thorax pain with deep inspiration and cough; she is requesting increased pain medications however explained that it is already every 4 hours and we would not want to suppress her breathing. She also asked for anxiety medication, she states she usually has to be on ativan while she's on steroids because she gets very anxious; discussed starting low dose ativan but this will only be available to her while she's in the hospital, patient verbalized understanding. She has no other medical complaints at this time. Patient does not feel ready for discharge today but states she will probably feel ready to go by tomorrow. Patient already has oxygen at home that she uses as needed. She also already has a nebulizer machine. Objective Vitals Vital Signs Date Time Temp Pulse Resp B/P Pulse Ox O2 Delivery O2 Flow Rate FiO2 12/19/16 11:30 98.1 118 18 121/74 97 12/19/16 08:06 98.1 112 18 132/85 98 12/19/16 08:05 98 Nasal Cannula 2.00 12/19/16 04:00 98.3 110 20 133/82 96 12/19/16 02:30 103 12/19/16 02:10 98.6 102 20 142/87 97 12/19/16 01:35 101 20 98 Nasal Cannula 2 12/19/16 01:30 98 Nasal Cannula 2 12/19/16 01:29 100 Nasal Cannula 2.00 12/19/16 00:50 110 22 154/100 100 BiPAP 12/18/16 22:37 98 40 12/18/16 22:20 98 Nasal Cannula 2.00 12/18/16 22:00 99 Nasal Cannula 2 12/18/16 21:51 112 22 96 Room Air 12/18/16 21:47 98.6 116 22 139/91 96 I/O 12/18/16 12/18/16 12/18/16 12/19/16 12/19/16 12/19/16 07:00 15:00 23:00 07:00 15:00 23:00 Intake Total 220 ml Balance 220 ml Intake Oral 220 ml # Voids 3 # Bowel Movements 1 Result Diagram: 12/18/16224412/18/162244 Imaging Last Impressions Chest X-Ray 12/18/162206 Signed Impressions: Service Date/Time: Sunday, December 18, 2016 22:11 - CONCLUSION: No evidence of acute cardiopulmonary disease. Keon Blandon MD Objective Remarks GENERAL: Well-nourished, well-developed female patient in NAD. Blind. SKIN: Warm and dry. Cheeks and chest flushed. HEENT: Normocephalic. Atraumatic.Pupils equal and round. Mucous membranes pink and moist. NECK: Supple. Trachea midline. CARDIOVASCULAR: Tachycardic, regular rhythm. S1, S2 noted. No murmur appreciated. RESPIRATORY: No accessory muscle use. Decreased air movement throughout all lung hart with poor inspiratory effort, no audible wheezing. Breath sounds equal bilaterally. GASTROINTESTINAL: Abdomen soft, non-tender, nondistended. Normoactive bowel sounds x4. MUSCULOSKELETAL: No obvious deformities. Extremities without clubbing, cyanosis , or edema. NEUROLOGICAL: Awake and alert. No obvious cranial nerve deficits. Motor grossly within normal limits. Normal speech. PSYCHIATRIC: Anxious mood; insight and judgment normal. Medications and IVs Current Medications Medications (Trade) Dose Ordered Sig/Akash Route Start Time Stop Time Status Last Admin (SoluMEDROL INJ) 40 mg Q6HR IV PUSH 12/19/16 06:00 12/19/16 05:20 (NS Flush) 2 ml UNSCH PRN IV FLUSH 12/19/16 00:30 (NS Flush) 2 ml BID IV FLUSH 12/19/16 09:00 12/19/16 08:28 (Zofran Inj) 4 mg Q6H PRN IVP 12/19/16 00:30 (Dulcolax Supp) 10 mg DAILY PRN RECTAL 12/19/16 00:30 (Tylenol) 650 mg Q6H PRN PO 12/19/16 00:30 (Talco 5-325 Mg) 1 tab Q4H PRN PO 12/19/16 00:30 (Talco 10-325 Mg) 1 tab Q4H PRN PO 12/19/16 00:30 12/19/16 08:28 (Singulair) 10 mg HS PO 12/19/16 21:00 Theophylline 400 mg 400 mg DAILY PO 12/19/16 09:00 12/19/16 08:28 (Levaquin 750 Mg Premix Inj) 150 ml @ 100 mls/hr Q24H IV 12/19/16 04:00 12/19/16 05:21 (Ativan) 0.5 mg Q12H PRN PO 12/19/16 11:30 A/P Problem List: (1) Asthma ICD Code: J45.909 Status: Chronic (2) Leukocytosis ICD Code: D72.829 Status: Acute (3) Dehydration ICD Code: E86.0 Status: Acute Assessment and Plan 31-year-old female with a PMH of Asthma, Glaucoma, Legally Blind and Anxiety who presented to the ER with complaints of 1 day hx of SOB and wheezing. Acute Asthma Exacerbation: +wheezing, O2 sat 96% on RA upon arrival, however pt requesting BIPAP due to respiratory fatigue, now weaned off, O2 sat 98% on 2L NC. S/p Solu-Medrol and DuoNeb w/ some improvement. Continue IV Solu-Medrol, Neb q4h and q2hr prn, resume home medications. Theophylline subtherapeutic, will resume. Leukocytosis: WBC 14.2, w/ elevated neutrophil count. Suspect secondary to recent steroid use. CXR w/ no acute findings, images reviewed by me, however in light of significant respiratory distress and recurrent Asthma, will start on empiric treatment for Atypical PNA with Levaquin. Repeat labs in am. Dehydration: GFR 74, BUN/Creatinine normal. Likely secondary to increased respiratory losses, s/p IVF in ER, will repeat labs in am. Anxiety: while on steroids. Added Ativan 0.5mg q12h prn however discussed with patient will only be available while in the hospital. DVT Prophylaxis: SCD/teds. Joya Owen PA-C December 19, 2016 12:44 pm
[2016-12-19] MEDS: LORazepam 0.5 MG TAB PO PRN (12:55)
--- NOTE | 2016-12-19 14:25 | EKG ---
Date Performed: 12/18/2016 Time Performed: 21:59:06 PTAGE: 31 years EKG: SINUS TACHYCARDIA WITH SHORT FL INTERVAL POSSIBLE LEFT ATRIAL ENLARGEMENT INCOMPLETE RIGHT BUNDLE BRANCH BLOCK ABNORMAL RHYTHM ECG Left atrial abnormality new since prior tracing PREVIOUS TRACING 09/29/16 DOCTOR: Venkata Elizabeth Interpretating Date/Time 12/19/2016 14:24:17
[2016-12-19] MEDS: methylPREDNISolone SOD SUCC 40 MG/1 ML VIAL IV PUSH SCH ×2 (15:07→21:10)
[2016-12-19] MEDS ORDERED: MONTELUKAST SODIUM 10 MG TAB PO SCH (21:00)
[2016-12-20] MEDS: ACETAMINOPHEN/HYDROcodone 325 MG/10 MG TAB PO PRN (01:14)
[2016-12-20] MEDS: LORazepam 0.5 MG TAB PO PRN (01:15)
[2016-12-20] MEDS: RESP: ALBUTEROL 2.5 MG/3 ML NEB (PRN) NEB (01:22)
[2016-12-20] MEDS: LEVOFLOXACIN 750 MG PREMIX INJ 150 ML IV SCH (04:07)
[2016-12-20] MEDS: methylPREDNISolone SOD SUCC 40 MG/1 ML VIAL IV PUSH SCH ×2 (04:07→10:09)
[2016-12-20 04:56] VITALS: BP 130/78; PULSE 106; RESP 17; TEMP 97.1; O2SAT 97
[2016-12-20] MEDS: RESP: ALBUTEROL 2.5 MG/3 ML NEB (SCH) NEB ×2 (07:12→11:47)
[2016-12-20] MEDS: RESP: BUDESONIDE 0.5 MG/2 ML NEB NEB SCH (07:12)
[2016-12-20 07:14] VITALS: O2SAT 98
[2016-12-20 07:32] LABS: AUTOMATED NEUTROPHIL # 17.9 TH/MM3 (1.8-7.7); BASOPHIL % 0.1 % (0.0-2.0); HEMATOCRIT 37.2 % (35.0-46.0); LYMPH % 4.1 % (9.0-44.0); LYMPHOCYTE # 0.8 TH/MM3 (1.0-4.8); MEAN CELL VOLUME 90.2 FL (80.0-100.0); MEAN CORPUSCULAR HEMOGLOBIN 29.4 PG (27.0-34.0); MEAN CORPUSCULAR HGB CONC 32.6 % (32.0-36.0); MONO % 3.4 % (0.0-8.0); NEUT % 92.4 % (16.0-70.0); PLATELET COUNT 196 TH/MM3 (150-450); RED BLOOD COUNT 4.12 MIL/MM3 (4.00-5.30); RED CELL DISTRIBUTION WIDTH 13.6 % (11.6-17.2); WHITE BLOOD COUNT 19.4 TH/MM3 (4.0-11.0)
[2016-12-20 07:35] LABS: HEMO FLAGS AUTO DIFF
[2016-12-20 07:57] LABS: ALKALINE PHOSPHATASE 66 U/L (45-117); ALT (GPT) 29 U/L (10-53); ANION GAP 12 MEQ/L (5-15); AST (GOT) 7 U/L (15-37); BICARBONATE 22.1 MEQ/L (21.0-32.0); BLOOD UREA NITROGEN 12 MG/DL (7-18); CHLORIDE 106 MEQ/L (98-107); GLOMERULAR FILTRATION RATE 90 ML/MIN (>89); POTASSIUM 3.2 MEQ/L (3.5-5.1); SODIUM (NA) 140 MEQ/L (136-145); TOTAL BILIRUBIN ADULT 0.2 MG/DL (0.2-1.0)
[2016-12-20] MEDS ORDERED: POTASSIUM CHLORIDE 20 MEQ CONTROLLED RELEASE TAB PO ONE (08:15)
[2016-12-20 08:19] VITALS: BP 119/74; PULSE 107; RESP 18; TEMP 96.6; O2SAT 97
[2016-12-20] MEDS: THEOPHYLLINE 200 MG EXTENDED RELEASE CAP PO SCH (10:08)
[2016-12-20] MEDS: SODIUM CHLORIDE 0.9% FLUSH 10 ML FLUSH IV FLUSH SCH (10:09)
--- NOTE | 2016-12-20 11:18 | HHI.PR ---
Subjective Remarks Follow-up for asthma exacerbation. The patient reports continued improvement in her breathing. She feels like she is "very close" to her baseline. She states she's been able to ambulate some here, and does get little winded, but feels that she can manage as long as she takes it slow. She denies any wheezing. She follows with a compensation supervisor out of [facility]. She states she is normally on 2 L of oxygen at home, currently on 1 L. She feels comfortable going home today. Objective Vitals Vital Signs Date Time Temp Pulse Resp B/P Pulse Ox O2 Delivery O2 Flow Rate FiO2 12/20/16 08:19 96.6 107 18 119/74 97 12/20/16 07:14 98 Nasal Cannula 1.00 12/20/16 04:56 97.1 106 17 130/78 97 12/19/16 23:41 98.4 113 18 144/87 97 12/19/16 19:56 98.3 124 18 140/84 96 12/19/16 19:25 99 Nasal Cannula 1.50 12/19/16 16:59 97.2 120 18 131/76 95 12/19/16 11:30 98.1 118 18 121/74 97 I/O 12/19/16 12/19/16 12/19/16 12/20/16 12/20/16 12/20/16 06:59 14:59 22:59 06:59 14:59 22:59 Intake Total 220 ml 480 ml Balance 220 ml 480 ml Intake Oral 220 ml 480 ml # Voids 3 # Bowel Movements 1 Result Diagram: 12/20/16 0600 12/20/16 06 Imaging Last Impressions Chest X-Ray 12/18/162206 Signed Impressions: Service Date/Time: Sunday, December 18, 2016 22:11 - CONCLUSION: No evidence of acute cardiopulmonary disease. Keon Blandon MD Objective Remarks GENERAL: Well-developed well-nourished. In no acute distress. SKIN: Warm and dry. No lesions noted. HEENT: Normocephalic. Blindness. Mucous membranes pink and moist. CARDIOVASCULAR: Regular rate and rhythm. No murmur appreciated. RESPIRATORY: No accessory muscle use. Clear to auscultation. Breath sounds equal bilaterally. No wheezing. GASTROINTESTINAL: Abdomen soft, non-tender, nondistended. Bowel sounds x4. MUSCULOSKELETAL: No obvious deformities. No clubbing or cyanosis. No edema. NEUROLOGICAL: Awake and alert. No focal neurological deficits. Moves upper and lower extremities spontaneously. Normal speech. PSYCHIATRIC: Appropriate mood and affect; insight and judgment normal. A/P Problem List: (1) Asthma ICD Code: J45.909 Status: Chronic (2) Leukocytosis ICD Code: D72.829 Status: Acute Assessment and Plan 31-year-old female with a PMH of Asthma, Glaucoma, Legally Blind and Anxiety who presented to the ER with complaints of 1 day hx of SOB and wheezing. Acute Asthma Exacerbation: +wheezing, O2 sat 96% on RA upon arrival, however pt requested BIPAP due to respiratory fatigue, now weaned off. O2 sat 97% on 1L NC. Change IV steroids to oral prednisone taper at DC. Continue bronchodilators. Continue home theophylline. Symptoms significantly improved. Follow-up with pulmonology as outpatient. Leukocytosis: WBC 14.2, w/ elevated neutrophil count. Suspect secondary to recent steroid use. CXR reviewed, w/ no acute findings. With significant respiratory distress and recurrent Asthma, started on empiric treatment for Atypical PNA with Levaquin 5 days. Afebrile Anxiety: while on steroids. Added Ativan 0.5mg q12h prn, only available while in the hospital. Hypokalemia: Potassium 3.2. Replace orally. Checked magnesium which was within normal limits. DVT Prophylaxis: SCD/teds. Discharge Planning Discharge patient to home Condition on discharge: Improved Regular Diet as tolerated Regular activity Rx written: Prednisone taper, Levaquin for 5 days total Follow-up with primary care physician and pulmonology Josué Philip December 20, 2016 11:18
[2016-12-20] MEDS ORDERED: PRED10PA2 PO (11:23)
[2016-12-20] MEDS ORDERED: LEVO750T33 PO (11:25)
[2016-12-20 11:34] VITALS: BP 137/85; PULSE 100; RESP 16; TEMP 98.8; O2SAT 96
== END 2016-12-20 15:46 | disposition home or self-care (01) ==
LOC: NEPE 21:42 → NEDA 12-19 00:34 → NEPGCP 12-19 02:04
PROVIDERS: ADMIT Internal Medicine; ATTEND Internal Medicine
DX: J45.901 Unspecified asthma with (acute) exacerbation (principal); D72.829 Elevated white blood cell count, unspecified; E86.0 Dehydration; H54.8 Legal blindness, as defined in USA; F41.9 Anxiety disorder, unspecified; I10 Essential (primary) hypertension; E87.6 Hypokalemia; E78.00 Pure hypercholesterolemia, unspecified; Z97.0 Presence of artificial eye; Z88.1 Allergy status to other antibiotic agents
CPT/HCPCS: 71010; 76937; 80053; 80198; 83735; 83880; 85025; 93005; 94002; 94640; 94664; 96361; 96374; 99285; G0378; J1956; J2920; J2930; J7030; J7613; J7626

== ENCOUNTER 2017-01-03 10:56 | Emergency (ER) | payer MEDICARE, OTHER ==
[~2017-01-03] VITALS: Ht 149.9 cm; Wt 72.7 kg
[~2017-01-03 10:56] MED LIST changes: +LEVO750T33 PO; -PRED-503 PO; +PRED10PA2 PO; -ZITHTAB PO
[2017-01-03 11:08] VITALS: BP 129/89; PULSE 110; RESP 20; TEMP 99; O2SAT 100
[2017-01-03 11:15] VITALS: O2SAT 95
[2017-01-03] MEDS ORDERED: guaiFENesin/DEXTROMETHORPHAN 200 MG/20 MG/10 ML CUP PO ONE (11:15)
[2017-01-03] MEDS ORDERED: SODIUM CHLORIDE 0.9% FLUSH 10 ML FLUSH IVF PRN (11:15)
[2017-01-03 11:18] VITALS: BP 129/77; PULSE 99; RESP 16; TEMP 99; O2SAT 100
--- NOTE | 2017-01-03 11:22 | PD ---
HPI Chief Complaint: Respiratory Symptoms Time Seen by Provider: 11:22 Travel History International Travel<30 days: No Contact w/Intl Traveler<30days: No Traveled to known affect area: No History of Present Illness HPI 31-year-old female with history of asthma, frequent visits to the emergency department for evaluation of chest pain, shortness of breath, presents to emergency department today for evaluation of shortness of breath and a cough. Patient states that she woke up this morning with this cough. Intermittent anterior chest pain that does not radiate anywhere. Cough is nonproductive. Patient was given Solu-Medrol and 3 albuterol treatments in route by [facility]. Denies any nausea vomiting. No other recent illnesses, fever, chills. No other symptoms to report. PFSH Past Medical History Asthma: Yes Autoimmune Disease: No Blood Disorders: No Anxiety: Yes Depression: No Heart Rhythm Problems: No Cancer: No Cardiac Catheterization: No Cardiovascular Problems: No High Cholesterol: Yes Chest Pain: Yes Congestive Heart Failure: No COPD: No Diabetes: No Diminished Hearing: No Endocrine: No Gastrointestinal Disorders: No Glaucoma: Yes (GLAUCOMA IMPLANT ON 07-12-05) Genitourinary: No Hypertension: Yes Immune Disorder: No Musculoskeletal: No Neurologic: No Psychiatric: Yes Reproductive: No Respiratory: Yes (ASTHMA) Immunizations Current: No Sleep Apnea: No Thyroid Disease: No Tetanus Vaccination: Unknown Influenza Vaccination: No ?: Not Menopausal: No : 3 Para: 2 Miscarriage: 1 Past Surgical History Abdominal Surgery: Yes AICD: No Coronary Artery Bypass Graft: No Eye Surgery: Yes (prosthetic eyes ) Joint Replacement: No Oral Surgery: Yes Pacemaker: No Tonsillectomy: Yes Other Surgery: Yes (HERNIA REPAIR) Social History Alcohol Use: Yes (OCC) Tobacco Use: No Substance Use: No Allergies-Medications (Allergen,Severity, Reaction): Coded Allergies: Macrobid (Verified Adverse Reaction, Severe, nausea and diarrhea, 01/03/17) Erythromycin (Verified Adverse Reaction, Mild, CONVULSIONS, 01/03/17) Uncoded Allergies: PROPELLANT BASED INHALERS (Allergy, Intermediate, 09/09/15) Reported Meds & Prescriptions Reported Meds & Active Scripts Active Guaifenesin DM Liq (Guaifenesin-Dextromethorphan Liq) 10-100 Mg/5 Ml Liq 10 Ml PO Q4H PRN Prednisone 20 Mg Tab 20 Mg PO BID 5 Days Duoneb (Ipratropium-Albuterol Neb) 0.5-2.5 Mg/3 Ml Neb 1 Nebule INH Q4HR NEB Reported Brovana Neb (Arformoterol Neb) 15 Mcg/2 Ml Vial 1 Nebule NEB BID Maintenance treatment of bronchoconstriction in COPD. Pulmicort Respules (Budesonide) 0.5 Mg/2 Ml Neb 0.5 Mg NEB Q12HR NEB Theophylline ER 24 HR (Theophylline) 400 Mg Tab 400 Mg PO DAILY Singulair (Montelukast Sodium) 10 Mg Tab 10 Mg PO HS Review of Systems Except as stated in HPI: all other systems reviewed are Neg Physical Exam Narrative GENERAL: Well-nourished female patient, sitting up in bed, in no acute distress SKIN: Focused skin assessment warm/dry. HEAD: Atraumatic. Normocephalic. EYES: Pupils equal and round. No scleral icterus. No injection or drainage. ENT: No nasal bleeding or discharge. Mucous membranes pink and moist. NECK: Trachea midline. No JVD. CARDIOVASCULAR: Elevated rate and rhythm. No murmur appreciated. RESPIRATORY: No accessory muscle use. Slight inspiratory wheeze to auscultation. Breath sounds equal bilaterally. GASTROINTESTINAL: Abdomen soft, non-tender, nondistended. Hepatic and splenic margins not palpable. MUSCULOSKELETAL: No obvious deformities. No clubbing. No cyanosis. No edema. NEUROLOGICAL: Awake and alert. No obvious cranial nerve deficits. Motor grossly within normal limits. Normal speech. Data Data Last Documented VS Vital Signs Date Time Temp Pulse Resp B/P Pulse Ox O2 Delivery O2 Flow Rate FiO2 01/03/17 13:23 92 15 99 01/03/17 11:18 99.0 129/77 Room Air 01/03/17 11:15 21 Orders Electrocardiogram (01/03/17 11:12) Ecg Monitoring (01/03/17 11:12) Iv Access Insert/Monitor (01/03/17 11:12) Oximetry (01/03/17 11:12) Oxygen Administration (01/03/17 11:12) Albuterol-Ipratropium Neb (Duoneb Neb) (01/03/17 11:15) Sodium Chloride 0.9% Flush (Ns Flush) (01/03/17 11:15) Guaifen-Dm 200-20 Mg/10 Ml Liq (Robituss (01/03/17 11:15) Chest, Single Ap (01/03/17 ) MDM Medical Decision Making Medical Screen Exam Complete: Yes Emergency Medical Condition: Yes Medical Record Reviewed: Yes Differential Diagnosis Asthma exacerbation versus cough versus bronchospasm versus foreign body versus pneumonia Narrative Course 31-year-old female presents to emergency department for evaluation of cough, chest tightness that began this morning. Patient appears without distress. She does have a faint wheeze. These symptoms are typical to her asthma exacerbations. She is given DuoNeb 3 and symptoms have resolved. I did give her some Robitussin for her cough seems to alleviate. She requests a prescription for cough syrup to go home with. Her primary care provider is Dr. Decker and she states that she will contact him for follow-up. She agrees to return immediately with any acute worsening symptoms. Diagnosis Primary Impression: Cough Additional Impressions: Asthma Qualified Code: J45.31 - Mild persistent asthma with acute exacerbation Chest pain, atypical Tachycardia Referrals: Primary Care Physician Patient Instructions: General Instructions Additional Instructions: Heme identified air may help to alleviate symptoms Continue medication as artery prescribed Follow-up to primary care provider Return immediately with any acute worsening of symptoms Med/Other Pt SpecificInfo: Prescription(s) given Scripts Guaifenesin-Dextromethorphan Liq (Guaifenesin DM Liq)10-100 Mg/5 Ml Liq10 Ml PO Q4H PRN (COUGH) #1 BOTTLE Ref 0 Prov:Coleen Cuellar 01/03/17 Prednisone 20 Mg Tab20 Mg PO BID 5 Days Ref 0 Prov:Coleen Cuellar 01/03/17 Disposition: 01 DISCHARGE HOME Condition: Stable Coleen Cuellar Jan 03, 2017 11:22
[2017-01-03] MEDS: RESP: ALBUTEROL 2.5 MG/IPRATROPIUM 0.5 MG NEB (SCH) INH (11:35)
--- NOTE | 2017-01-03 12:40 | RADRPT ---
EXAM DATE/TIME: 01/03/2017 12:05 [facility] COMPARISON: CHEST SINGLE AP, December 18, 2016, 22:11. INDICATIONS : Asthma attack this morning, short of breath, wheezing MEDICAL HISTORY : asthma SURGICAL HISTORY : bronchial thermoplasty x 2 ENCOUNTER: Initial ACUITY: 1 day PAIN SCORE: 0/10 LOCATION: Bilateral chest FINDINGS: A single view of the chest demonstrates the lungs to be symmetrically aerated without evidence of mas s, infiltrate or effusion. The cardiomediastinal contours are unremarkable. Osseous structures are intact. CONCLUSION: 1. No acute cardiopulmonary findings Nico Patten MD on January 03, 2017 at 12:38 Board Certified Radiologist. This report was verified electronically.
[2017-01-03] MEDS ORDERED: PRED20 PO (12:50)
[2017-01-03] MEDS ORDERED: GUAISYP7 PO (12:53)
--- NOTE | 2017-01-04 20:03 | EKG ---
Date Performed: 01/03/2017 Time Performed: 12:00:30 PTAGE: 31 years EKG: SINUS TACHYCARDIA WITH SHORT ID INTERVAL NONSPECIFIC T-WAVE ABNORMALITY ABNORMAL RHYTHM ECG PREVIOUS TRACING : 12/18/2016 21.59 Compared to the previous tracing, IRBBB no longer noted DOCTOR: Alec Chung Interpretating Date/Time 01/04/2017 20:01:30
== END 2017-01-03 13:28 | disposition home or self-care (01) ==
LOC: NEPE 10:56
DX: R05 Cough (principal); J45.909 Unspecified asthma, uncomplicated; R07.9 Chest pain, unspecified; R00.0 Tachycardia, unspecified; I10 Essential (primary) hypertension; R94.31 Abnormal electrocardiogram [ECG] [EKG]
CPT/HCPCS: 71010; 93005; 94640; 94664

== ENCOUNTER 2017-03-27 12:52 | Observation (INO) | payer MEDICARE, OTHER ==
[2017-03-27] VITALS (8 sets, daily range): BP systolic 123–144; BP diastolic 75–86; PULSE 90–122; RESP 18–20; TEMP 98.2–98.6; O2SAT 96–98
[~2017-03-27 12:52] MED LIST changes: +GUAISYP7 PO; -LEVO750T33 PO; -PRED10PA2 PO; +PRED20 PO
[2017-03-27] MEDS ORDERED: SODIUM CHLORIDE 0.9% FLUSH 10 ML FLUSH IVF PRN (13:30)
[2017-03-27] MEDS ORDERED: SODIUM CHLORID 0.9% 500 ML INJ 500 ML IV ONE (13:30)
[2017-03-27] MEDS ORDERED: methylPREDNISolone SOD SUCC 125 MG/2 ML VIAL IVP ONE (13:30)
--- NOTE | 2017-03-27 13:33 | PD ---
HPI Chief Complaint: shortness of breath Time Seen by Provider: 13:03 Travel History International Travel<30 days: No Contact w/Intl Traveler<30days: No Traveled to known affect area: No History of Present Illness HPI The patient is a 31-year-old female who presents to the emergency department for shortness of breath. The patient states her shortness of breath started last night, is associated with a dry nonproductive cough, and occasional anterior pleuritic chest pain described as tightness. The patient does have a history of asthma and is followed by her car rental service attendant, Dr. Hall. The patient denies any recent surgeries or prolonged travel, was hospitalized several months ago for asthma, 5 days per her recollection. The patient denies any history of pulmonary embolism or DVT. She does complain of feeling bad, some generalized weakness, and diaphoresis. She also notes a mild sore throat with her dry nonproductive cough. The patient denies any nausea, vomiting, diarrhea, or abdominal pain. PFSH Past Medical History Asthma: Yes Autoimmune Disease: No Blood Disorders: No Anxiety: Yes Depression: No Heart Rhythm Problems: No Cancer: No Cardiac Catheterization: No Cardiovascular Problems: No High Cholesterol: Yes Chest Pain: Yes Congestive Heart Failure: No COPD: No Diabetes: No Diminished Hearing: No Endocrine: No Gastrointestinal Disorders: No Glaucoma: Yes (GLAUCOMA IMPLANT ON 07-12-05) Genitourinary: No Hypertension: Yes Immune Disorder: No Musculoskeletal: No Neurologic: No Psychiatric: Yes Reproductive: No Respiratory: Yes (ASTHMA) Immunizations Current: No Sleep Apnea: No Thyroid Disease: No Menopausal: No : 3 Para: 2 Miscarriage: 1 Past Surgical History Abdominal Surgery: Yes AICD: No Coronary Artery Bypass Graft: No Eye Surgery: Yes (prosthetic eyes ) Joint Replacement: No Oral Surgery: Yes Pacemaker: No Tonsillectomy: Yes Other Surgery: Yes (HERNIA REPAIR) Social History Alcohol Use: Yes (OCC) Tobacco Use: No Substance Use: No Allergies-Medications (Allergen,Severity, Reaction): Coded Allergies: nitrofurantoin (Unverified Adverse Reaction, Severe, nausea and diarrhea, 03/14/17) erythromycin base (Unverified Adverse Reaction, Mild, CONVULSIONS, 03/14/17 ) Uncoded Allergies: PROPELLANT BASED INHALERS (Allergy, Intermediate, 09/09/15) Reported Meds & Prescriptions Reported Meds & Active Scripts Active Guaifenesin DM Liq (Guaifenesin-Dextromethorphan Liq) 10-100 Mg/5 Ml Liq 10 Ml PO Q4H PRN Prednisone 20 Mg Tab 20 Mg PO BID 5 Days Duoneb (Ipratropium-Albuterol Neb) 0.5-2.5 Mg/3 Ml Neb 1 Nebule INH Q4HR NEB Reported Brovana Neb (Arformoterol Neb) 15 Mcg/2 Ml Vial 1 Nebule NEB BID Maintenance treatment of bronchoconstriction in COPD. Pulmicort Respules (Budesonide) 0.5 Mg/2 Ml Neb 0.5 Mg NEB Q12HR NEB Theophylline ER 24 HR (Theophylline) 400 Mg Tab 400 Mg PO DAILY Singulair (Montelukast Sodium) 10 Mg Tab 10 Mg PO HS Review of Systems Except as stated in HPI: all other systems reviewed are Neg General / Constitutional: No: Fever HENT: No: Lightheadedness Cardiovascular: Positive: Chest Pain or Discomfort Respiratory: Positive: Cough, Shortness of Breath, Pleuritic Pain Gastrointestinal: No: Nausea, Vomiting, Abdominal Pain Genitourinary: No: Dysuria Musculoskeletal: No: Edema Physical Exam Narrative GENERAL: Awake, alert, pleasant 31 year-old female who appears her stated age and is in no obvious respiratory distress. SKIN: Focused skin assessment warm, slightly diaphoretic. HEAD: Atraumatic. Normocephalic. EYES: Blind. ENT: No nasal bleeding or discharge. Minimal erythema and cobblestoning, no exudate. NECK: Trachea midline. No JVD. CARDIOVASCULAR: Regular rate and rhythm. No murmur appreciated. Heart rate in the 80s. RESPIRATORY: No accessory muscle use. Clear to auscultation. Breath sounds equal bilaterally. GASTROINTESTINAL: Abdomen soft, non-tender, nondistended. No rebound tenderness. MUSCULOSKELETAL: No obvious deformities. No clubbing. No cyanosis. No edema. NEUROLOGICAL: Awake and alert. No obvious cranial nerve deficits. Motor grossly within normal limits. Normal speech. Nonfocal. Blind. PSYCHIATRIC: Appropriate mood and affect; insight and judgment normal. Data Data Last Documented VS Vital Signs Date Time Temp Pulse Resp B/P (MAP) Pulse Ox O2 Delivery O2 Flow Rate FiO2 03/27/17 15:09 123 20 97 Room Air 03/27/17 13:50 144/85 (104) 03/27/17 13:35 98.4 Orders Orders Complete Blood Count With Diff (03/27/17 13:20) Comprehensive Metabolic Panel (03/27/17 13:20) B-Type Natriuretic Peptide (03/27/17 13:20) Magnesium (Mg) (03/27/17 13:20) Ckmb (Isoenzyme) Profile (03/27/17 13:20) Troponin I (03/27/17 13:20) Influenzae A/B Antigen (03/27/17 13:20) Iv Access Insert/Monitor (03/27/17 13:20) Electrocardiogram (03/27/17 13:20) Ecg Monitoring (03/27/17 13:20) Oximetry (03/27/17 13:20) Oxygen Administration (03/27/17 13:20) Chest, Single Ap (03/27/17 13:20) Sodium Chloride 0.9% Flush (Ns Flush) (03/27/17 13:30) Methylprednisolone So Succ Inj (Solumedr (03/27/17 13:30) Albuterol-Ipratropium Neb (Duoneb Neb) (03/27/17 13:30) Sodium Chlorid 0.9% 500 Ml Inj (Ns 500 M (03/27/17 13:30) Potassium Chloride (Kcl) (03/27/17 16:00) Admit Order (Ed Use Only) (03/27/17 16:23) Labs Laboratory Tests Test 03/27/17 14:55 White Blood Count 11.1 TH/MM3 Red Blood Count 5.21 MIL/MM3 Hemoglobin 15.5 GM/DL Hematocrit 46.2 % Mean Corpuscular Volume 88.6 FL Mean Corpuscular Hemoglobin 29.7 PG Mean Corpuscular Hemoglobin Concent 33.5 % Red Cell Distribution Width 13.0 % Platelet Count 296 TH/MM3 Mean Platelet Volume 8.6 FL Neutrophils (%) (Auto) 86.8 % Lymphocytes (%) (Auto) 11.0 % Monocytes (%) (Auto) 1.8 % Eosinophils (%) (Auto) 0.1 % Basophils (%) (Auto) 0.3 % Neutrophils # (Auto) 9.6 TH/MM3 Lymphocytes # (Auto) 1.2 TH/MM3 Monocytes # (Auto) 0.2 TH/MM3 Eosinophils # (Auto) 0.0 TH/MM3 Basophils # (Auto) 0.0 TH/MM3 CBC Comment DIFF FINAL Differential Comment Blood Urea Nitrogen 8 MG/DL Creatinine 1.03 MG/DL Random Glucose 175 MG/DL Total Protein 7.3 GM/DL Albumin 4.0 GM/DL Calcium Level 8.9 MG/DL Magnesium Level 2.1 MG/DL Alkaline Phosphatase 133 U/L Aspartate Amino Transf (AST/SGOT) 17 U/L Alanine Aminotransferase (ALT/SGPT) 34 U/L Total Bilirubin 0.2 MG/DL Sodium Level 140 MEQ/L Potassium Level 3.0 MEQ/L Chloride Level 107 MEQ/L Carbon Dioxide Level 19.1 MEQ/L Anion Gap 14 MEQ/L Estimat Glomerular Filtration Rate 62 ML/MIN Total Creatine Kinase 60 U/L Troponin I 0.02 NG/ML B-Type Natriuretic Peptide 9 PG/ML MDM Medical Decision Making Medical Screen Exam Complete: Yes Emergency Medical Condition: Yes Medical Record Reviewed: Yes Interpretation(s) Sinus rhythm with sinus arrhythmia. No significant ST changes or elevations. No evidence of pericarditis. Last Impressions Chest X-Ray 03/27/17 1320 Signed Impressions: Service Date/Time: Monday, March 27, 2017 13:27 - CONCLUSION: No acute disease. Jude Patten MD FACR Laboratory Tests Test 03/27/17 14:55 White Blood Count 11.1 TH/MM3 Red Blood Count 5.21 MIL/MM3 Hemoglobin 15.5 GM/DL Hematocrit 46.2 % Mean Corpuscular Volume 88.6 FL Mean Corpuscular Hemoglobin 29.7 PG Mean Corpuscular Hemoglobin Concent 33.5 % Red Cell Distribution Width 13.0 % Platelet Count 296 TH/MM3 Mean Platelet Volume 8.6 FL Neutrophils (%) (Auto) 86.8 % Lymphocytes (%) (Auto) 11.0 % Monocytes (%) (Auto) 1.8 % Eosinophils (%) (Auto) 0.1 % Basophils (%) (Auto) 0.3 % Neutrophils # (Auto) 9.6 TH/MM3 Lymphocytes # (Auto) 1.2 TH/MM3 Monocytes # (Auto) 0.2 TH/MM3 Eosinophils # (Auto) 0.0 TH/MM3 Basophils # (Auto) 0.0 TH/MM3 CBC Comment DIFF FINAL Differential Comment Blood Urea Nitrogen 8 MG/DL Creatinine 1.03 MG/DL Random Glucose 175 MG/DL Total Protein 7.3 GM/DL Albumin 4.0 GM/DL Calcium Level 8.9 MG/DL Magnesium Level 2.1 MG/DL Alkaline Phosphatase 133 U/L Aspartate Amino Transf (AST/SGOT) 17 U/L Alanine Aminotransferase (ALT/SGPT) 34 U/L Total Bilirubin 0.2 MG/DL Sodium Level 140 MEQ/L Potassium Level 3.0 MEQ/L Chloride Level 107 MEQ/L Carbon Dioxide Level 19.1 MEQ/L Anion Gap 14 MEQ/L Estimat Glomerular Filtration Rate 62 ML/MIN Total Creatine Kinase 60 U/L Troponin I 0.02 NG/ML B-Type Natriuretic Peptide 9 PG/ML Differential Diagnosis Differential diagnosis includes asthma exacerbation, URI, bronchitis, pneumonia , pulmonary embolism, pleural effusion, congestive heart failure. Narrative Course IV was established, labs were drawn and sent, and the patient was placed on cardiac telemetry monitoring and continuous pulse oximetry monitoring. EKG was ordered and interpreted. Chest x-ray was obtained. Influenza was negative. Chest x-ray was unremarkable. Laboratory evaluation was unremarkable. The patient was reevaluated several times, she continued to have shortness of breath , heart rate was slightly elevated. I reviewed the EMR, the patient has had a negative VQ scan and negative CT pulmonary angiogram 3 in the last 2 years, I highly doubt pulmonary embolism. The patient's primary physician is Dr. Decker, therefore, Dr. Decker was paged for 23 hour observation. Physician Communication Physician Communication I discussed the patient with Dr. Decker who agrees with 23 hour observation. Diagnosis Primary Impression: Dyspnea Qualified Codes: R06.02 - Shortness of breath Admitting Information Admitting Physician Requests: Observation Condition: Stable Pedro Luis Márquez MD Mar 27, 2017 13:33
[2017-03-27] MEDS: RESP: ALBUTEROL 2.5 MG/IPRATROPIUM 0.5 MG NEB (SCH) INH ×2 (13:47→13:48)
--- NOTE | 2017-03-27 14:12 | RADRPT ---
EXAM DATE/TIME: 03/27/2017 13:27 [facility] COMPARISON: CHEST SINGLE AP, January 03, 2017, 12:05. INDICATIONS : Patient has shortness od breath with history of asthma. MEDICAL HISTORY : Hypertension. Cardiovascular disease SURGICAL HISTORY : None. ENCOUNTER: Initial ACUITY: 1 day PAIN SCORE: 3/10 LOCATION: Bilateral upper chest FINDINGS: A single view of the chest demonstrates the lungs to be symmetrically aerated without evidence of mas s, infiltrate or effusion. The cardiomediastinal contours are unremarkable. Osseous structures are intact. CONCLUSION: No acute disease. Jude Patten MD FACR on March 27, 2017 at 14:02 Board Certified Radiologist. This report was verified electronically.
[2017-03-27 15:31] LABS: AUTOMATED NEUTROPHIL # 9.6 TH/MM3 (1.8-7.7); BASOPHIL % 0.3 % (0.0-2.0); EOSINOPHIL % 0.1 % (0.0-4.0); HEMATOCRIT 46.2 % (35.0-46.0); HEMO FLAGS DIFF FINAL; LYMPHOCYTE # 1.2 TH/MM3 (1.0-4.8); MEAN CELL VOLUME 88.6 FL (80.0-100.0); MEAN CORPUSCULAR HEMOGLOBIN 29.7 PG (27.0-34.0); MEAN CORPUSCULAR HGB CONC 33.5 % (32.0-36.0); MONO % 1.8 % (0.0-8.0); NEUT % 86.8 % (16.0-70.0); PLATELET COUNT 296 TH/MM3 (150-450); RED BLOOD COUNT 5.21 MIL/MM3 (4.00-5.30); WHITE BLOOD COUNT 11.1 TH/MM3 (4.0-11.0)
[2017-03-27 15:46] LABS: ALT (GPT) 34 U/L (10-53); ANION GAP 14 MEQ/L (5-15); AST (GOT) 17 U/L (15-37); BICARBONATE 19.1 MEQ/L (21.0-32.0); BLOOD UREA NITROGEN 8 MG/DL (7-18); CHLORIDE 107 MEQ/L (98-107); GLOMERULAR FILTRATION RATE 62 ML/MIN (>89); MAGNESIUM 2.1 MG/DL (1.5-2.5); SODIUM (NA) 140 MEQ/L (136-145)
[2017-03-27 15:50] LABS: ALKALINE PHOSPHATASE 133 U/L (45-117); TOTAL BILIRUBIN ADULT 0.2 MG/DL (0.2-1.0)
[2017-03-27 15:56] LABS: CREATINE KINASE 60 U/L (26-192)
[2017-03-27] MEDS ORDERED: POTASSIUM CHLORIDE 20 MEQ CONTROLLED RELEASE TAB PO ONE ×2 (16:00→18:00)
[2017-03-27] MEDS ORDERED: PROCHLORPERAZINE 25 MG SUPP RECTAL PRN (17:00)
[2017-03-27] MEDS ORDERED: ONDANSETRON HCL 4 MG/2 ML VIAL IVP PRN (17:00)
[2017-03-27] MEDS ORDERED: ZOLPIDEM TARTRATE 5 MG TAB PO PRN (17:00)
[2017-03-27] MEDS ORDERED: NALOXONE HCL 0.4 MG/ML AMP IV PRN (17:00)
[2017-03-27] MEDS ORDERED: cloNIDine HCL 0.1 MG TAB PO PRN (17:00)
[2017-03-27] MEDS ORDERED: SODIUM CHLORIDE 0.9% FLUSH 10 ML FLUSH IV FLUSH PRN (17:00)
[2017-03-27] MEDS ORDERED: BISACODYL 10 MG SUPP RECTAL PRN (17:00)
[2017-03-27] MEDS ORDERED: LORazepam 0.5 MG TAB PO PRN (17:00)
[2017-03-27] MEDS ORDERED: MAGNESIUM HYDROXIDE SUSP 30 ML CUP PO PRN (17:00)
[2017-03-27] MEDS ORDERED: LACTULOSE SYRUP 20 GM/30 ML CUP PO PRN (17:00)
[2017-03-27] MEDS ORDERED: METOCLOPRAMIDE HCL 10 MG/2 ML VIAL IV PUSH PRN (17:00)
[2017-03-27] MEDS ORDERED: ACETAMINOPHEN 325 MG TAB PO PRN (17:00)
[2017-03-27] MEDS ORDERED: SENNOSIDES 8.6 MG TAB PO PRN (17:00)
[2017-03-27] MEDS ORDERED: guaiFENesin/DEXTROMETHORPHAN 200 MG/20 MG/10 ML CUP PO PRN (17:00)
[2017-03-27] MEDS: ACETAMINOPHEN/HYDROcodone 325 MG/5 MG TAB PO PRN (20:14)
[2017-03-27] MEDS: MONTELUKAST SODIUM 10 MG TAB PO SCH (20:14)
[2017-03-27] MEDS: DOCUSATE SODIUM 50 MG/SENNA 8.6 MG TAB PO SCH (20:15)
[2017-03-27] MEDS: SODIUM CHLORIDE 0.9% FLUSH 10 ML FLUSH IV FLUSH SCH (20:16)
[2017-03-27] MEDS: HEPARIN SODIUM - SQ 10,000 UNITS/ML VIAL SQ SCH (20:16)
[2017-03-27] MEDS: PANTOPRAZOLE SODIUM 40 MG VIAL IV PUSH SCH (20:17)
[2017-03-27] MEDS: RESP: BUDESONIDE 0.5 MG/2 ML NEB NEB SCH (20:41)
[2017-03-27] MEDS: RESP: ALBUTEROL 2.5 MG/IPRATROPIUM 0.5 MG NEB (SCH) NEB (20:41)
[2017-03-27] MEDS: methylPREDNISolone SOD SUCC 125 MG/2 ML VIAL IV SCH (23:59)
[2017-03-28] VITALS (7 sets, daily range): BP systolic 115–142; BP diastolic 59–88; PULSE 100–145; RESP 16–20; TEMP 98.1–101.1; O2SAT 94–97
[2017-03-28] MEDS: methylPREDNISolone SOD SUCC 125 MG/2 ML VIAL IV SCH ×4 (03:10→21:14)
[2017-03-28] MEDS: ACETAMINOPHEN/HYDROcodone 325 MG/5 MG TAB PO PRN ×2 (03:10→09:38)
[2017-03-28 06:07] LABS: AUTOMATED NEUTROPHIL # 11.5 TH/MM3 (1.8-7.7); BASOPHIL % 0.4 % (0.0-2.0); HEMATOCRIT 41.5 % (35.0-46.0); HEMO FLAGS DIFF FINAL; LYMPH % 8.2 % (9.0-44.0); MEAN CELL VOLUME 87.5 FL (80.0-100.0); MEAN CORPUSCULAR HEMOGLOBIN 29.4 PG (27.0-34.0); MEAN CORPUSCULAR HGB CONC 33.6 % (32.0-36.0); MONO % 0.6 % (0.0-8.0); NEUT % 90.8 % (16.0-70.0); PLATELET COUNT 322 TH/MM3 (150-450); RED BLOOD COUNT 4.74 MIL/MM3 (4.00-5.30); WHITE BLOOD COUNT 12.7 TH/MM3 (4.0-11.0)
[2017-03-28 06:27] LABS: POTASSIUM 3.7 MEQ/L (3.5-5.1)
[2017-03-28] MEDS: HEPARIN SODIUM - SQ 10,000 UNITS/ML VIAL SQ SCH ×2 (06:48→17:55)
[2017-03-28] MEDS: RESP: ALBUTEROL 2.5 MG/IPRATROPIUM 0.5 MG NEB (SCH) NEB ×4 (08:02→20:21)
[2017-03-28] MEDS: RESP: BUDESONIDE 0.5 MG/2 ML NEB NEB SCH ×2 (08:02→20:21)
[2017-03-28] MEDS: SODIUM CHLORIDE 0.9% FLUSH 10 ML FLUSH IV FLUSH SCH ×2 (09:40→21:10)
[2017-03-28] MEDS: DOCUSATE SODIUM 50 MG/SENNA 8.6 MG TAB PO SCH ×2 (09:40→21:11)
[2017-03-28] MEDS: THEOPHYLLINE 200 MG EXTENDED RELEASE CAP PO SCH (09:41)
--- NOTE | 2017-03-28 10:07 | MH ---
cc: DARWIN AVILES MD DATE OF ADMISSION: 03/27/2017 CHIEF COMPLAINT Chest pain and wheezing. HISTORY OF PRESENT ILLNESS Venessa Mendes is a 31-year-old female with recurrent asthma and chest pain. She has had numerous admissions for asthma exacerbations with tachycardia and chest pain. She sees Dr. Hall. She notes a chronic nonproductive cough and wheezing. States she was very short of breath and presented to the emergency room. She noted a slight sore throat. In the emergency room EKG showed no significant ST changes or problems. There is concern for pneumonia or pulmonary embolism. Dr. Márquez called me and she has had numerous workups for PE with the same symptoms. His concern was tachycardia and the consensus is that she has sinus tachycardia due to asthma and theophylline. Influenza was negative. Chest x-ray was within normal limits. He suggested observation. LABORATORY WBC 11.1, now 12.7. Potassium 3.0, now 3.7. Creatinine 0.67. Glucose 175 and 135. Alk phos 133. Influenza swab negative. RADIOLOGY Chest x-ray shows no acute disease. PAST MEDICAL HISTORY Asthma Anxiety Chest pain Sinus tachycardia due to theophylline Hyperlipidemia Glaucoma Blindness Hypertension. PAST SURGICAL HISTORY Abdominal surgery Prosthetic eyes Herniorrhaphy Tonsillectomy SOCIAL HISTORY No alcohol, tobacco or illicit drug usage. She is disabled due to blindness. ALLERGIES NITROFURANTOIN. ERYTHROMYCIN. MEDICATIONS Home medications are: Guaifenesin Prednisone DuoNeb Brovana Pulmicort Theophylline Singulair REVIEW OF SYSTEMS Recurrent chest pain, shortness of breath and anxiety. She has had some slight sputum but now is dry. Negative 14-point review of systems otherwise. PHYSICAL EXAMINATION VITAL SIGNS: Temperature 98.2, pulse 100, respirations 22, blood pressure 142/88, pulse 97. GENERAL: She is an alert female. She is sitting up. She is short of breath when she speaks. She speaks in 2-3 word sentences. HEENT/NECK: Oropharynx is clear. Carotids are clear. No JVD. Neck is supple. No lymphadenopathy. Normocephalic, atraumatic. CHEST: Tight wheezes on inspiration and expiration. She has moderate air movement. No crackles or consolidation. CARDIOVASCULAR: Tachycardic but regular. No murmurs. ABDOMEN: Soft, nontender. No rebound or guarding. EXTREMITIES: No edema. SKIN: Clear. NEUROLOGIC: Alert and oriented x3. Cranial nerves are intact. Strength is 3/5 in all extremities. PSYCHIATRIC: She is anxious. ASSESSMENT Asthma exacerbation Sinus tachycardia due to theophylline and asthma Hypertension Blindness Panic disorder PLAN Observation admission Case Management consult Regular diet [place] 5 mg p.r.n. chest pain Clonidine p.r.n. Heparin 5000 units q.12h. for DVT prophylaxis Ativan p.r.n. anxiety Solu-Medrol 80 IV q.6h. Protonix 40 IV daily for GI prophylaxis Theophylline Ambien p.r.n. O2 Respiratory therapy DISPOSITION Discharge home with home health care when the patient's respiratory status is stable. Darwin Aviles MD RP/BT /8:34 AM /9:40 AM
--- NOTE | 2017-03-28 11:08 | EKG ---
Date Performed: 03/27/2017 Time Performed: 13:49:14 PTAGE: 31 years EKG: Sinus rhythm WITH SINUS ARRHYTHMIA NORMAL ECG INTERPRETATION BASED ON A DEFAULT AGE OF 38 YEARS PREVIOUS TRACING : 01/03/[address]-T wave changes have resolved from the old tracing. DOCTOR: Venkata Elizabeth Interpretating Date/Time 03/28/2017 11:07:23
[2017-03-28] MEDS: ACETAMINOPHEN/HYDROcodone 325 MG/10 MG TAB PO PRN (17:52)
[2017-03-28] MEDS: PANTOPRAZOLE SODIUM 40 MG VIAL IV PUSH SCH (17:53)
[2017-03-28] MEDS: MONTELUKAST SODIUM 10 MG TAB PO SCH (21:00)
[2017-03-29] MEDS: ACETAMINOPHEN/HYDROcodone 325 MG/10 MG TAB PO PRN ×2 (00:13→09:48)
[2017-03-29 04:23] VITALS: BP 123/76; PULSE 108; RESP 18; TEMP 98.2; O2SAT 95
[2017-03-29] MEDS: HEPARIN SODIUM - SQ 10,000 UNITS/ML VIAL SQ SCH (05:35)
[2017-03-29] MEDS: methylPREDNISolone SOD SUCC 125 MG/2 ML VIAL IV SCH ×2 (05:35→09:49)
[2017-03-29 07:55] VITALS: BP 132/78; PULSE 102; RESP 16; TEMP 99; O2SAT 95
[2017-03-29 08:14] VITALS: O2SAT 96
[2017-03-29] MEDS: RESP: BUDESONIDE 0.5 MG/2 ML NEB NEB SCH (08:14)
[2017-03-29] MEDS: RESP: ALBUTEROL 2.5 MG/IPRATROPIUM 0.5 MG NEB (SCH) NEB (08:14)
--- NOTE | 2017-03-29 09:33 | HHI.DCPOC ---
Discharge Care Plan Diagnosis: (1) Tachycardia (2) Asthma (3) Cough (4) Asthma exacerbation (5) Legally blind Goals to Promote Your Health * To prevent worsening of your condition and complications * To maintain your health at the optimal level Directions to Meet Your Goals Take your medications as prescribed Follow your dietary instruction Follow activity as directed Keep your appointments as scheduled Take your immunizations and boosters as scheduled If your symptoms worsen call your PCP, if no PCP go to Urgent Care Center or Emergency Room Smoking is Dangerous to Your Health. Avoid second hand smoke Call the 24-hour hour crisis hotline for domestic abuse at Darwin Decker MD Mar 29, 2017 09:33
--- NOTE | 2017-03-29 09:34 | HHI.DS ---
Discharge Summary Admission Date Mar 27, 2017 at 16:24 Discharge Date: Mar 29, 2017 Admitting Diagnosis asthma exacerbation, dyspnea CBC/BMP: 03/28/17 0544 03/28/17 0544 Significant Findings Laboratory Tests Test 03/27/17 14:55 03/28/17 05:44 White Blood Count 11.1 TH/MM3 (4.0-11.0) 12.7 TH/MM3 (4.0-11.0) Hemoglobin 15.5 GM/DL (11.6-15.3) Hematocrit 46.2 % (35.0-46.0) Neutrophils (%) (Auto) 86.8 % (16.0-70.0) 90.8 % (16.0-70.0) Neutrophils # (Auto) 9.6 TH/MM3 (1.8-7.7) 11.5 TH/MM3 (1.8-7.7) Creatinine 1.03 MG/DL (0.50-1.00) Random Glucose 175 MG/DL (74-106) 135 MG/DL (74-106) Alkaline Phosphatase 133 U/L (45-117) Potassium Level 3.0 MEQ/L (3.5-5.1) Carbon Dioxide Level 19.1 MEQ/L (21.0-32.0) 19.0 MEQ/L (21.0-32.0) Estimat Glomerular Filtration Rate 62 ML/MIN (>89) Lymphocytes (%) (Auto) 8.2 % (9.0-44.0) Chloride Level 111 MEQ/L (98-107) PE at Discharge GENERAL: SKIN: Warm and dry. HEAD: Atraumatic. Normocephalic. EYES: Pupils equal and round. No scleral icterus. No injection or drainage. ENT: No nasal bleeding or discharge. Mucous membranes pink and moist. NECK: Trachea midline. No JVD. CARDIOVASCULAR: Regular rate and rhythm. RESPIRATORY: No accessory muscle use. Clear to auscultation. Breath sounds equal bilaterally. GASTROINTESTINAL: Abdomen soft, non-tender, nondistended. Hepatic and splenic margins not palpable. MUSCULOSKELETAL: Extremities without clubbing, cyanosis, or edema. No obvious deformities. NEUROLOGICAL: Awake and alert. No obvious cranial nerve deficits. Motor grossly within normal limits. Five out of 5 muscle strength in the arms and legs. Normal speech. PSYCHIATRIC: Appropriate mood and affect; insight and judgment normal. Hospital Course ASSESSMENT Asthma exacerbation Sinus tachycardia due to theophylline and asthma Hypertension Blindness Panic disorder PLAN Observation admission Case Management consult Regular diet [place] 5 mg p.r.n. chest pain Clonidine p.r.n. Heparin 5000 units q.12h. for DVT prophylaxis Ativan p.r.n. anxiety Solu-Medrol 80 IV q.6h. Protonix 40 IV daily for GI prophylaxis Theophylline Ambien p.r.n. O2 Respiratory therapy DISPOSITION Discharge home with home health care Discharge Disposition: Disch w/ Home Health Serv Discharge Instructions DIET: Follow Instructions for: As Tolerated, No Restrictions Activities you can perform: Regular-No Restrictions Continued Medications: Arformoterol Neb (Brovana Neb) 15 Mcg/2 Ml Vial 1 NEBULE NEB BID for Broncospasm, #60 NEBULE Maintenance treatment of bronchoconstriction in COPD. Budesonide Neb (Pulmicort Respules) 0.5 Mg/2 Ml Neb 0.5 MG NEB Q12HR NEB for Breathing Treatment, #60 NEBULE 0 Refills Guaifenesin-Dextromethorphan Liq (Guaifenesin DM Liq) 10-100 Mg/5 Ml Liq 10 ML PO Q4H PRN for COUGH, #1 BOTTLE 0 Refills Ipratropium-Albuterol Neb (Duoneb) 0.5-2.5 Mg/3 Ml Neb 1 NEBULE INH Q4HR NEB for SHORTNESS OF BREATH, #120 NEBULE 0 Refills Montelukast (Singulair) 10 Mg Tab 10 MG PO HS, #30 TAB 0 Refills Prednisone (Prednisone) 20 Mg Tab 20 MG PO BID for 5 Days, TAB 0 Refills Theophylline ER 24 HR (Theophylline ER 24 HR) 400 Mg Tab 400 MG PO DAILY, #30 TAB 0 Refills Darwin Decker MD Mar 29, 2017 09:34
--- NOTE | 2017-03-29 09:38 | HHI.FF ---
Face to Face Verification Diagnosis: (1) CAP (community acquired pneumonia) (2) ANGELES (acute kidney injury) (3) Dyspnea (4) Bronchitis (5) Leukocytosis (6) Cough (7) Tachycardia (8) Legally blind (9) Asthma exacerbation Physical Therapy Order: Evaluate and Treat, Improve ambulation, Strength and gait training Occupational Therapy Order: Evaluate and Treat, Improve ADL, Gross motor coordination, Fine motor coordination Home Health Nursing Order: Signs/symptoms of disease process Medication education-adverse effect Nursing assessment with vital signs Telehealth Home Health Aide Order: To Assist In: Bathing and personal care, second shift supervisor and meal prep [employer]eles[employer] Manager Order: To Evaluate: Living conditions/environment, Support services Order: To Provide: Long range planning, Community services I have seen patient Venessa Mendes on 03/29/17. My clinical findings support the need for the requested home health care services because: Ltd mobility - disease progression Patient has SOB Deconditioned w/ increased weakness Med compliance is questionable Limited ability to care for self Need for psychosocial assistance Impaired cognition/judgement High risk of falls Infection w/ risk of complications I certify that my clinical findings support that this patient is homebound because: Impaired cognitive ability/safety Hx COPD- exertion dyspnea/weakness Unsteady gait/balance Unsafe to leave home unassisted Need for psychosocial assistance [id number] bed/chair Unable to use public transportation Darwin Decker MD Mar 29, 2017 09:38
[2017-03-29] MEDS: DOCUSATE SODIUM 50 MG/SENNA 8.6 MG TAB PO SCH (09:49)
[2017-03-29] MEDS: THEOPHYLLINE 200 MG EXTENDED RELEASE CAP PO SCH (09:49)
[2017-03-29] MEDS: SODIUM CHLORIDE 0.9% FLUSH 10 ML FLUSH IV FLUSH SCH (09:49)
[2017-03-29 10:18] LABS: AUTOMATED NEUTROPHIL # 18.8 TH/MM3 (1.8-7.7); BASOPHIL % 0.1 % (0.0-2.0); HEMATOCRIT 40.3 % (35.0-46.0); HEMO FLAGS DIFF FINAL; LYMPH % 6.2 % (9.0-44.0); LYMPHOCYTE # 1.3 TH/MM3 (1.0-4.8); MEAN CELL VOLUME 88.6 FL (80.0-100.0); MEAN CORPUSCULAR HGB CONC 33.9 % (32.0-36.0); MONO % 2.7 % (0.0-8.0); PLATELET COUNT 335 TH/MM3 (150-450); RED BLOOD COUNT 4.55 MIL/MM3 (4.00-5.30); RED CELL DISTRIBUTION WIDTH 13.2 % (11.6-17.2); WHITE BLOOD COUNT 20.6 TH/MM3 (4.0-11.0)
[2017-03-29 10:23] LABS: BICARBONATE 20.6 MEQ/L (21.0-32.0); POTASSIUM 3.8 MEQ/L (3.5-5.1)
== END 2017-03-29 13:48 | disposition home health service (06) ==
LOC: NEPC 12:52 → NEDA 16:24 → NEPGCP 18:56
PROVIDERS: ADMIT Family Medicine; ATTEND Family Medicine
DX: J45.901 Unspecified asthma with (acute) exacerbation (principal); R07.89 Other chest pain; I10 Essential (primary) hypertension; R00.0 Tachycardia, unspecified; T48.6X5A Adverse effect of antiasthmatics, initial encounter; H40.9 Unspecified glaucoma; E78.00 Pure hypercholesterolemia, unspecified; F41.0 Panic disorder [episodic paroxysmal anxiety]; H54.8 Legal blindness, as defined in USA
CPT/HCPCS: 71010; 80048; 80053; 82550; 82948; 83735; 83880; 84484; 85025; 87804; 93005; 94640; 94664; 96361; 96372; 96374; 96375; 96376; 99285; C9113; G0378; J1644; J2930; J7040; J7626